=== PATIENT | female | born 1985 | race Caucasian/White ===

== ENCOUNTER 2016-12-05 18:57 | Emergency (ER) | payer OTHER ==
[~2016-12-05 18:57] MED LIST: ACET50TA PO; PERCOCET PO
[2016-12-05] MEDS ORDERED: CIPROFLOXACIN 500 MG TAB As Ordered ONE (21:25)
[2016-12-05] MEDS ORDERED: metroNIDAZOLE (FLAGYL) 250 MG TAB As Ordered ONE (21:25)
--- NOTE | 2016-12-05 21:30 | EDDOCDS ---
Physician Documentation [facility] Name: Cherrie Gay Age: 31 yrs Sex: Female : 1985 Arrival Date: 12/05/2016 Time: 18:57 Bed TR8 Private MD: Finesse Ramires Disposition: 12/05/16 21:22 Discharged to Home/Self Care. Impression: Left sided colitis with rectal bleeding. - Condition is Stable. - Discharge Instructions: Gastrointestinal Bleeding, [id number]. - Prescriptions for Cipro 500 mg Oral Tablet - take 1 tablet by ORAL route every 12 hours; 14 tablet. Flagyl 500 mg Oral Tablet - take 1 tablet by ORAL route every 8 hours for 10 days; 30 tablet. Medrol (Patrick) 4 mg Oral Tablets, Dose Pack - take 1 Pack by ORAL route as directed - follow package instructions; 1 packet. - Medication Reconciliation, Local Pharmacy Hours form. - Follow up: Finesse Ramires; When: Call to arrange an appointment; Reason: Further diagnostic work-up, Recheck today's complaints, Continuance of care. - Problem is new. - Symptoms are unchanged. Historical: - Allergies: Chocolate (Rash); - Home Meds: 1. bupropion HCl 150 mg Oral Tb24 once daily 2. clemastine 2.68 mg oral tab 1 tab once daily 3. microgesterin BCP daily 4. naproxen 250 mg oral tab 5. omeprazole 40 mg Oral cpDR once daily 6. pregabalin 200 mg Oral cap 2 times per day 7. tizanidine 4 mg oral cap 1 cap 3 times per day 8. tramadol 50 mg Oral tab 1 tab every 4 hours 9. zonisamide 50 mg oral cap 10. rizatriptan 10 mg oral tab as needed - PMHx: Chronic Low Back Pain; Chronic Neck Pain; Depression; Fibromyalgia; GERD; Migraine Headaches; Ovarian cyst; TMJ; - PSHx: Appendectomy; Tubal ligation; eye surgery; - Social history: Smoking status: Patient states was never smoker of tobacco. No barriers to communication noted, The patient speaks fluent Yakut. - : The pt / caregiver states he / she is not on anticoagulants. Home medication list is obtained from the patient. - Exposure Risk Screening:: None identified. 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 7 in. (170.18 cm) (R); Pain 3/10; 18:59 Body Mass Index 34.46 (99.79 kg, 170.18 cm) gr2 MDM: 21:24 Ciprofloxacin 500 mg PO once ordered. btw 21:24 metroNIDAZOLE 500 mg PO once ordered. btw Administered Medications: 21:27 Drug: metroNIDAZOLE 500 mg [metronidazole 250 mg tablet (2 tabs)] Route: PO; ld5 21:28 Drug: Ciprofloxacin 500 mg [ciprofloxacin 500 mg tablet (1 tabs)] Route: PO; ld5 Signatures: Raiza Tapia RN RN rs3 Tucker Martinez PA PA btw Vera Cueva RN RN ld5 MTDD
--- NOTE | 2016-12-05 21:30 | EDDOCDS ---
Nurse's Notes [facility] Name: Cherrie Gay Age: 31 yrs Sex: Female : 1985 Arrival Date: 12/05/2016 Time: 18:57 Bed TR8 Private MD: Finesse Ramires Diagnosis: Left sided colitis with rectal bleeding Presentation: 12/05 19:21 Presenting complaint: Patient states: Blood in stools today. lower abdomen, lower back rs3 pain. Adult Sepsis Screening: The patient does not have new or worsening altered mentation. Patient's respiratory rate is less than 22. Systolic blood pressure is greater than 100. Patient has a qSOFA score of 0- Negative Sepsis Screen. Suicide/Homicide risk assessment- the patient denies having any suicidal and/or homicidal ideations and does not present with any other emotional, behavioral or mental health complaints. Status: Patient is not a assurance services manager health care or dependent. Transition of care: patient was not received from another setting of care. 19:21 Acuity: KATHRIN Level 3 rs3 19:21 Method Of Arrival: Walkin/Carried/Asstd rs3 Triage Assessment: 19:25 General: Appears in no apparent distress. Pain: Location: lumbar area and pelvis. HIV rs3 screening NA for this visit Offered previously. 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 bupropion HCl 150 mg Oral Tb24 once daily 2. clemastine 2.68 mg oral tab 1 tab once daily 3. microgesterin BCP daily 4. naproxen 250 mg oral tab 5. omeprazole 40 mg Oral cpDR once daily 6. pregabalin 200 mg Oral cap 2 times per day 7. tizanidine 4 mg oral cap 1 cap 3 times per day 8. tramadol 50 mg Oral tab 1 tab every 4 hours 9. zonisamide 50 mg oral cap 10. rizatriptan 10 mg oral tab as needed - PMHx: Chronic Low Back Pain; Chronic Neck Pain; Depression; Fibromyalgia; GERD; Migraine Headaches; Ovarian cyst; TMJ; - PSHx: Appendectomy; Tubal ligation; eye surgery; - Social history: Smoking status: Patient states was never smoker of tobacco. No barriers to communication noted, The patient speaks fluent Fijian. - : The pt / caregiver states he / she is not on anticoagulants. Home medication list is obtained from the patient. - Exposure Risk Screening:: None identified. Vital Signs: 18:59 BP 122 / 76; Pulse 97; Resp 18 S; Temp 97.3(O); Pulse Ox 98% on R/A; Weight 99.79 kg gr2 (R); Height 5 ft. 7 in. (170.18 cm) (R); Pain 3/10; 18:59 Body Mass Index 34.46 (99.79 kg, 170.18 cm) gr2 Vitals: 18:59 Log In Time: December 05, 2016 at 18:59. gr2 ED Course: 18:58 Patient visited by Nancie Tran. gr2 18:58 Patient moved to Waiting gr2 18:59 Finesse Ramires is Private Physician. gr2 19:01 Patient visited by Nancie Tran. gr2 19:01 Patient moved to Pre RCE gr2 19:22 Triage Initiated rs3 20:56 Patient moved to Triage 1 sew 20:57 Patient moved to Triage 3 ld5 21:10 Tucker Martinez PA is PHCP. btw 21:10 Yo Carreon DO is Attending Physician. btw 21:10 Patient visited by Tucker Martinez PA. btw 21:22 Finesse Ramires is Referral Physician. btw 21:26 Patient moved to TR8 cz Administered Medications: 21:27 Drug: metroNIDAZOLE 500 mg [metronidazole 250 mg tablet (2 tabs)] Route: PO; ld5 21:28 Drug: Ciprofloxacin 500 mg [ciprofloxacin 500 mg tablet (1 tabs)] Route: PO; ld5 Order Results: There are currently no results for this order. Outcome: 21:22 Discharge ordered by Provider. btw 21:29 Patient left the ED. ld5 Signatures: Edwin Ureña RN RN cz Raiza Tapia RN RN rs3 Tucker Martinez PA PA btw Vera Cueva RN RN ld5 Obdulia Nash Gainslee gr2 MTDD
--- NOTE | 2016-12-07 22:30 | EDDOCDS ---
Nurse's Notes [facility] Name: Cherrie Gay Age: 31 yrs Sex: Female : 1985 Arrival Date: 12/05/2016 Time: 18:57 Bed TR8 Private MD: Finesse Ramires Diagnosis: Left sided colitis with rectal bleeding Presentation: 12/05 19:21 Presenting complaint: Patient states: Blood in stools today. lower abdomen, lower back rs3 pain. Adult Sepsis Screening: The patient does not have new or worsening altered mentation. Patient's respiratory rate is less than 22. Systolic blood pressure is greater than 100. Patient has a qSOFA score of 0- Negative Sepsis Screen. Suicide/Homicide risk assessment- the patient denies having any suicidal and/or homicidal ideations and does not present with any other emotional, behavioral or mental health complaints. Status: Patient is not a financial service representative or dependent. Transition of care: patient was not received from another setting of care. 19:21 Acuity: KATHRIN Level 3 rs3 19:21 Method Of Arrival: Walkin/Carried/Asstd rs3 Triage Assessment: 19:25 General: Appears in no apparent distress. Pain: Location: lumbar area and pelvis. HIV rs3 screening NA for this visit Offered previously. 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 bupropion HCl 150 mg Oral Tb24 once daily 2. clemastine 2.68 mg oral tab 1 tab once daily 3. microgesterin BCP daily 4. naproxen 250 mg oral tab 5. omeprazole 40 mg Oral cpDR once daily 6. pregabalin 200 mg Oral cap 2 times per day 7. tizanidine 4 mg oral cap 1 cap 3 times per day 8. tramadol 50 mg Oral tab 1 tab every 4 hours 9. zonisamide 50 mg oral cap 10. rizatriptan 10 mg oral tab as needed - PMHx: Chronic Low Back Pain; Chronic Neck Pain; Depression; Fibromyalgia; GERD; Migraine Headaches; Ovarian cyst; TMJ; - PSHx: Appendectomy; Tubal ligation; eye surgery; - Social history: Smoking status: Patient states was never smoker of tobacco. No barriers to communication noted, The patient speaks fluent Austrian. - : The pt / caregiver states he / she is not on anticoagulants. Home medication list is obtained from the patient. - Exposure Risk Screening:: None identified. Vital Signs: 18:59 BP 122 / 76; Pulse 97; Resp 18 S; Temp 97.3(O); Pulse Ox 98% on R/A; Weight 99.79 kg gr2 (R); Height 5 ft. 7 in. (170.18 cm) (R); Pain 3/10; 18:59 Body Mass Index 34.46 (99.79 kg, 170.18 cm) gr2 Vitals: 18:59 Log In Time: December 05, 2016 at 18:59. gr2 ED Course: 18:58 Patient visited by Nancie Tran. gr2 18:58 Patient moved to Waiting gr2 18:59 Finesse Ramires is Private Physician. gr2 19:01 Patient visited by Nancie Tran. gr2 19:01 Patient moved to Pre RCE gr2 19:22 Triage Initiated rs3 20:56 Patient moved to Triage 1 sew 20:57 Patient moved to Triage 3 ld5 21:10 Tucker Martinez PA is PHCP. btw 21:10 Yo Carreon DO is Attending Physician. btw 21:10 Patient visited by Tucker Martinez PA. btw 21:22 Finesse Ramires is Referral Physician. btw 21:26 Patient moved to 8 12/06 09:39 T-Sheet-- Draft Copy was scanned into [employer] and attached to record. gb Administered Medications: 12/05 21:27 Drug: metroNIDAZOLE 500 mg [metronidazole 250 mg tablet (2 tabs)] Route: PO; ld5 21:28 Drug: Ciprofloxacin 500 mg [ciprofloxacin 500 mg tablet (1 tabs)] Route: PO; ld5 Order Results: There are currently no results for this order. Outcome: 21:22 Discharge ordered by Provider. btw 21:29 Patient left the ED. ld5 Signatures: Edwin Ureña RN RN cz Radha Corbin, Reg Reg gb Raiza Tapia RN RN rs3 Tucker Martinez PA PA btw Vera Cueva RN RN ld5 Obdulia Nash Gainslee gr2 Chart Complete MTDD
--- NOTE | 2016-12-07 22:30 | EDDOCDS ---
Physician Documentation [facility] Name: Cherrie Gay Age: 31 yrs Sex: Female : 1985 Arrival Date: 12/05/2016 Time: 18:57 Bed TR8 Private MD: Finesse Ramires Disposition: 12/05/16 21:22 Discharged to Home/Self Care. Impression: Left sided colitis with rectal bleeding. - Condition is Stable. - Discharge Instructions: Gastrointestinal Bleeding, [id number]. - Prescriptions for Cipro 500 mg Oral Tablet - take 1 tablet by ORAL route every 12 hours; 14 tablet. Flagyl 500 mg Oral Tablet - take 1 tablet by ORAL route every 8 hours for 10 days; 30 tablet. Medrol (Patrick) 4 mg Oral Tablets, Dose Pack - take 1 Pack by ORAL route as directed - follow package instructions; 1 packet. - Medication Reconciliation, Local Pharmacy Hours form. - Follow up: Finesse Ramires; When: Call to arrange an appointment; Reason: Further diagnostic work-up, Recheck today's complaints, Continuance of care. - Problem is new. - Symptoms are unchanged. Historical: - Allergies: Chocolate (Rash); - Home Meds: 1. bupropion HCl 150 mg Oral Tb24 once daily 2. clemastine 2.68 mg oral tab 1 tab once daily 3. microgesterin BCP daily 4. naproxen 250 mg oral tab 5. omeprazole 40 mg Oral cpDR once daily 6. pregabalin 200 mg Oral cap 2 times per day 7. tizanidine 4 mg oral cap 1 cap 3 times per day 8. tramadol 50 mg Oral tab 1 tab every 4 hours 9. zonisamide 50 mg oral cap 10. rizatriptan 10 mg oral tab as needed - PMHx: Chronic Low Back Pain; Chronic Neck Pain; Depression; Fibromyalgia; GERD; Migraine Headaches; Ovarian cyst; TMJ; - PSHx: Appendectomy; Tubal ligation; eye surgery; - Social history: Smoking status: Patient states was never smoker of tobacco. No barriers to communication noted, The patient speaks fluent Kazakh. - : The pt / caregiver states he / she is not on anticoagulants. Home medication list is obtained from the patient. - Exposure Risk Screening:: None identified. 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 7 in. (170.18 cm) (R); Pain 3/10; 18:59 Body Mass Index 34.46 (99.79 kg, 170.18 cm) gr2 MDM: 21:24 Ciprofloxacin 500 mg PO once ordered. btw 21:24 metroNIDAZOLE 500 mg PO once ordered. btw 12/06 09:39 T-Sheet-- Draft Copy was scanned into [employer] and attached to record. gb Administered Medications: 12/05 21:27 Drug: metroNIDAZOLE 500 mg [metronidazole 250 mg tablet (2 tabs)] Route: PO; ld5 21:28 Drug: Ciprofloxacin 500 mg [ciprofloxacin 500 mg tablet (1 tabs)] Route: PO; ld5 Signatures: Radha Corbin, Reg Reg gb Raiza TapiaRN RN rs3 Tucker Martinez PA PA btw Vera Cueva,RN RN ld5 The chart was reviewed and I authenticate all verbal orders and agree with the evaluation and treatment provided.Attachments: 12/06 09:39 T-Sheet-- Draft Copy gb Chart Complete MTDD
--- NOTE | 2016-12-07 22:30 | EDDOCDS ---
Physician Documentation [facility] Name: Cherrie Gay Age: 31 yrs Sex: Female : 1985 Arrival Date: 12/05/2016 Time: 18:57 Bed TR8 Private MD: Finesse Ramires Disposition: 12/05/16 21:22 Discharged to Home/Self Care. Impression: Left sided colitis with rectal bleeding. - Condition is Stable. - Discharge Instructions: Gastrointestinal Bleeding, [id number]. - Prescriptions for Cipro 500 mg Oral Tablet - take 1 tablet by ORAL route every 12 hours; 14 tablet. Flagyl 500 mg Oral Tablet - take 1 tablet by ORAL route every 8 hours for 10 days; 30 tablet. Medrol (Patrick) 4 mg Oral Tablets, Dose Pack - take 1 Pack by ORAL route as directed - follow package instructions; 1 packet. - Medication Reconciliation, Local Pharmacy Hours form. - Follow up: Finesse Ramires; When: Call to arrange an appointment; Reason: Further diagnostic work-up, Recheck today's complaints, Continuance of care. - Problem is new. - Symptoms are unchanged. Historical: - Allergies: Chocolate (Rash); - Home Meds: 1. bupropion HCl 150 mg Oral Tb24 once daily 2. clemastine 2.68 mg oral tab 1 tab once daily 3. microgesterin BCP daily 4. naproxen 250 mg oral tab 5. omeprazole 40 mg Oral cpDR once daily 6. pregabalin 200 mg Oral cap 2 times per day 7. tizanidine 4 mg oral cap 1 cap 3 times per day 8. tramadol 50 mg Oral tab 1 tab every 4 hours 9. zonisamide 50 mg oral cap 10. rizatriptan 10 mg oral tab as needed - PMHx: Chronic Low Back Pain; Chronic Neck Pain; Depression; Fibromyalgia; GERD; Migraine Headaches; Ovarian cyst; TMJ; - PSHx: Appendectomy; Tubal ligation; eye surgery; - Social history: Smoking status: Patient states was never smoker of tobacco. No barriers to communication noted, The patient speaks fluent Italian. - : The pt / caregiver states he / she is not on anticoagulants. Home medication list is obtained from the patient. - Exposure Risk Screening:: None identified. 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 7 in. (170.18 cm) (R); Pain 3/10; 18:59 Body Mass Index 34.46 (99.79 kg, 170.18 cm) gr2 MDM: 21:24 Ciprofloxacin 500 mg PO once ordered. btw 21:24 metroNIDAZOLE 500 mg PO once ordered. btw 12/06 09:39 T-Sheet-- Draft Copy was scanned into [employer] and attached to record. gb Administered Medications: 12/05 21:27 Drug: metroNIDAZOLE 500 mg [metronidazole 250 mg tablet (2 tabs)] Route: PO; ld5 21:28 Drug: Ciprofloxacin 500 mg [ciprofloxacin 500 mg tablet (1 tabs)] Route: PO; ld5 Signatures: Radha Corbin, Reg Reg gb Raiza TapiaRN RN rs3 Tucker Martinez PA PA btw Vera Cueva,RN RN ld5 The chart was reviewed and I authenticate all verbal orders and agree with the evaluation and treatment provided.Attachments: 12/06 09:39 T-Sheet-- Draft Copy gb Chart Complete MTDD
== END 2016-12-05 21:29 | disposition home or self-care (01) ==
LOC: M ED 18:57
DX: K64.8 Other hemorrhoids (principal); K51.50 Left sided colitis without complications; M54.9 Dorsalgia, unspecified; G89.29 Other chronic pain; M79.7 Fibromyalgia; F32.9 Major depressive disorder, single episode, unspecified; K21.9 Gastro-esophageal reflux disease without esophagitis; G43.909 Migraine, unspecified, not intractable, without status migrainosus; Z87.42 Personal history of other diseases of the female genital tract; M26.629 Arthralgia of temporomandibular joint, unspecified side; Z79.899 Other long term (current) drug therapy; Z79.3 Long term (current) use of hormonal contraceptives; Z91.018 Allergy to other foods

== ENCOUNTER → 2016-12-30 | Outpatient (REF) | payer OTHER | END | disposition home or self-care (01) | LOC: M LAB REF 17:24 | PROVIDERS: ATTEND Specialist | DX: Z01.419 Encounter for gynecological examination (general) (routine) without abnormal findings (principal); Z11.51 Encounter for screening for human papillomavirus (HPV) ==

== ENCOUNTER 2017-02-11 12:52 | Emergency (ER) | payer OTHER ==
[~2017-02-11] VITALS: Ht 170.2 cm; Wt 97.5 kg
[2017-02-11] MEDS ORDERED: MICR1TAB9 (16:23)
[2017-02-11] MEDS ORDERED: CLEM2.68 (16:23)
[2017-02-11] MEDS ORDERED: RIZA10TA4 (16:23)
[2017-02-11] MEDS ORDERED: ZONI100C2 (16:23)
[2017-02-11] MEDS ORDERED: FLUT1SPR2 (16:23)
[2017-02-11] MEDS ORDERED: OMEP40CA2 (16:23)
[2017-02-11] MEDS ORDERED: BACL10TA2 (16:23)
[2017-02-11] MEDS ORDERED: BUPR150T3 (16:23)
[2017-02-11] MEDS ORDERED: METOCLOPRAMIDE INJ 10MG/2ML VIAL (J2765) IV ONE (17:45)
[2017-02-11] MEDS ORDERED: diphenhydrAMINE INJ 50MG/ML VIAL (J1200) IV ONE (17:45)
[2017-02-11] MEDS ORDERED: NS 1,000 ML IV ONE (17:45)
[2017-02-11] MEDS ORDERED: KETOROLAC 30 MG/ML VIAL (J1885) IV ONE (17:45)
[2017-02-11] MEDS ORDERED: REGL10TA6 PO (19:07)
[2017-02-11 19:35] VITALS: BP 138/76
== END 2017-02-11 19:40 | disposition home or self-care (01) ==
LOC: M ED 15:59
DX: G43.909 Migraine, unspecified, not intractable, without status migrainosus (principal)
CPT/HCPCS: 87804; 96374; 96375; 99282; J1200; J1885; J2765

== ENCOUNTER → 2017-03-26 | Outpatient (CLI) | payer OTHER ==
[~2017-03-26] VITALS: Ht 167.6 cm; Wt 97.1 kg
[~2017-03-26] MED LIST changes: +BACL10TA2; +BUPR150T3; +CLEM2.68; +FLUT1SPR2; +LIDOCAINE 2% INJ 100 MG/5 ML SDV (FOR ANES.) As Ordered ONE; +LYRI200C PO; +MICR1TAB9; +NAPR250T2 PO; +NS 1,000 ML IV ONE; +OMEP40CA2; +PROPOFOL 500 MG/50 ML VIAL As Ordered ONE; +REGL10TA6 PO; +RIZA10TA4; +TRAM50TA2 PO; +ZOFR20TA PO; +ZONI100C2; +ZONI50CA3 PO
--- NOTE | 2017-03-26 11:43 | ROOR ---
Patient Name: Cherrie Gay Procedure Date: 03/26/2017 11:30 AM Date of : 1985 Age: 31 Room: [facility] Gender: Female Note Status: Finalized Procedure: Upper GI endoscopy Indications: Heartburn Providers: Alejandro Richardson MD Referring MD: LARRY Garcia Requesting Provider: Medicines: Monitored Anesthesia Care Complications: No immediate complications. Procedure: Pre-Anesthesia Assessment: - The heart rate, respiratory rate, oxygen saturations, blood pressure, adequacy of pulmonary ventilation, and response to care were monitored throughout the procedure. The Endoscope was introduced through the mouth, and advanced to the second part of duodenum. The upper GI endoscopy was accomplished without difficulty. The patient tolerated the procedure well. Findings: The Z-line was regular and was found 40 cm from the incisors. No other significant abnormalities were identified in a careful examination of the stomach. The exam of the duodenum was otherwise normal. Impression: - Z-line regular, 40 cm from the incisors. - No specimens collected. - The examination was otherwise normal. Recommendation: - Patient has a contact number available for emergencies. The signs and symptoms of potential delayed complications were discussed with the patient. Return to normal activities tomorrow. Written discharge instructions were provided to the patient. - High fiber diet. - Discharge patient to home. - Follow an antireflux regimen. - Continue present medications. - Return to referring physician. - The findings and recommendations were discussed with the patient's family. Alejandro Richardson MD Alejandro Richardson MD 03/26/2017 11:42:48 AM This report has been signed electronically. Number of Addenda: 0 Note Initiated On: 03/26/2017 11:30 AM Estimated Blood Loss: Estimated blood loss: none.
--- NOTE | 2017-03-26 11:56 | ROOR ---
Patient Name: Cherrie Gay Procedure Date: 03/26/2017 11:31 AM Date of : 1985 Age: 31 Room: [facility] Gender: Female Note Status: Finalized Procedure: Colonoscopy to Cecum Indications: Rectal bleeding Providers: Alejandro Richardson MD Referring MD: LARRY Garcia Requesting Provider: Medicines: Monitored Anesthesia Care Complications: No immediate complications. Procedure: Pre-Anesthesia Assessment: - The heart rate, respiratory rate, oxygen saturations, blood pressure, adequacy of pulmonary ventilation, and response to care were monitored throughout the procedure. The Colonoscope was introduced through the anus and advanced to the cecum, identified by appendiceal orifice and ileocecal valve. The colonoscopy was performed without difficulty. The patient tolerated the procedure well. The quality of the bowel preparation was excellent. Findings: The perianal and digital rectal examinations were normal. Non-bleeding internal hemorrhoids were found during retroflexion. The hemorrhoids were small and Grade I (internal hemorrhoids that do not prolapse). No other significant abnormalities were identified in a careful examination of the remainder of the colon. The exam was otherwise without abnormality on direct and retroflexion views. Impression: - Non-bleeding internal hemorrhoids. - The examination was otherwise normal on direct and retroflexion views. - No specimens collected. - The exam was otherwise normal to the cecum. Recommendation: - Patient has a contact number available for emergencies. The signs and symptoms of potential delayed complications were discussed with the patient. Return to normal activities tomorrow. Written discharge instructions were provided to the patient. - High fiber diet. - Discharge patient to home. - Continue present medications. - Repeat colonoscopy at age 50 for screening purposes. - Return to referring physician. - The findings and recommendations were discussed with the patient's family. Alejandro Richardson MD Alejandro Richardson MD 03/26/2017 11:55:48 AM This report has been signed electronically. Number of Addenda: 0 Note Initiated On: 03/26/2017 11:31 AM Estimated Blood Loss: Estimated blood loss: none.
[2017-03-26 12:20] VITALS: BP 121/83
== END ==
LOC: M OPP 10:56
PROVIDERS: ATTEND Internal Medicine Gastroenterology
DX: K64.0 First degree hemorrhoids (principal); K62.5 Hemorrhage of anus and rectum; R12 Heartburn; K21.9 Gastro-esophageal reflux disease without esophagitis; M54.5 Low back pain; M54.2 Cervicalgia; M26.629 Arthralgia of temporomandibular joint, unspecified side; R56.9 Unspecified convulsions; G24.8 Other dystonia; F32.9 Major depressive disorder, single episode, unspecified; F41.9 Anxiety disorder, unspecified; G43.909 Migraine, unspecified, not intractable, without status migrainosus; M79.7 Fibromyalgia; Z79.891 Long term (current) use of opiate analgesic; Z79.899 Other long term (current) drug therapy; Z91.018 Allergy to other foods; Z91.040 Latex allergy status; Z87.19 Personal history of other diseases of the digestive system

== ENCOUNTER 2017-04-22 00:38 | Emergency (ER) | payer OTHER ==
[~2017-04-22] VITALS: Ht 167.6 cm; Wt 98.0 kg
[~2017-04-22 00:38] MED LIST changes: -LIDOCAINE 2% INJ 100 MG/5 ML SDV (FOR ANES.) As Ordered ONE; -NS 1,000 ML IV ONE; -PROPOFOL 500 MG/50 ML VIAL As Ordered ONE
[2017-04-22] MEDS ORDERED: KETOROLAC 30 MG/ML VIAL (J1885) IV ONE (02:30)
[2017-04-22] MEDS ORDERED: dexameTHASONE 20 MG/5 ML VIAL (J1100) IV ONE (02:30)
[2017-04-22] MEDS ORDERED: METOCLOPRAMIDE INJ 10MG/2ML VIAL (J2765) IV ONE (02:30)
[2017-04-22 02:35] VITALS: BP 123/75
== END 2017-04-22 04:19 | disposition home or self-care (01) ==
LOC: EDBD 00:38 → EDSEX 00:38 → M ED 01:51
DX: G43.709 Chronic migraine without aura, not intractable, without status migrainosus (principal); M79.7 Fibromyalgia; K21.9 Gastro-esophageal reflux disease without esophagitis; G47.00 Insomnia, unspecified; Z91.018 Allergy to other foods; Z91.040 Latex allergy status; Z91.048 Other nonmedicinal substance allergy status; Z79.899 Other long term (current) drug therapy; Z79.1 Long term (current) use of non-steroidal anti-inflammatories (NSAID)

== ENCOUNTER 2018-01-06 11:32 | Inpatient (IN) | payer OTHER ==
[2018-01-06] MEDS: NS 1,000 ML IV ×2 (12:30→17:43)
[2018-01-06] MEDS: ONDANSETRON 4MG/2ML VIAL (J2405) IV ×2 (13:00→15:08)
[2018-01-06] MEDS: MORPHINE 4 MG/ML 1ML VIAL (J2270) IV ×2 (13:00→21:32)
[2018-01-06 13:15] LABS: BASO % 0.1 % (0.0-1.0); EOS % 0.1 % (0.0-3.0); HEMATOCRIT 35.4 % (36.0-47.0); HEMOGLOBIN 12.3 g/dl (12.0-16.0); IMMATURE GRANULOCYTE % 0.4 % (0-3.0); LYMPH # 1.5 10^3/uL (1.5-4.5); LYMPH % 11.2 % (24.0-44.0); MEAN CORPUSCULAR HEMOGLOBIN 30.4 pg (27.0-33.0); MEAN CORPUSCULAR HGB CONC 34.7 g/dl (32.0-36.5); MEAN CORPUSCULAR VOLUME 87.4 fl (80.0-96.0); MONO # 1.2 10^3/uL (0.0-0.8); MONO % 8.8 % (0.0-5.0); NEUTROPHILS # 10.7 10^3/uL (1.8-7.7); NEUTROPHILS % 79.4 % (36.0-66.0); PLATELET COUNT, AUTOMATED 319 10^3/uL (150-450); RED BLOOD COUNT 4.05 10^6/uL (4.00-5.40); RED CELL DISTRIBUTION WIDTH 12.1 % (11.5-14.5); WHITE BLOOD COUNT 13.5 10^3/uL (4.0-10.0)
[2018-01-06 13:23] LABS: CONTROL LINE HCG INT CTR LINE PRESENT; HCG, SERUM QUALITATIVE NEGATIVE (NEGATIVE)
[2018-01-06 13:31] LABS: ALBUMIN 3.5 GM/DL (3.2-5.2); ALKALINE PHOSPHATASE 100 U/L (45-117); ALT/SGPT 17 U/L (12-78); ANION GAP 11 MEQ/L (8-16); AST/SGOT 10 U/L (7-37); BILIRUBIN,DIRECT 0.1 MG/DL (0.0-0.2); BILIRUBIN,TOTAL 0.4 MG/DL (0.2-1.0); BLOOD UREA NITROGEN 13 MG/DL (7-18); CARBON DIOXIDE LEVEL 27 MEQ/L (21-32); CHLORIDE LEVEL 99 MEQ/L (98-107); CREATININE FOR GFR 0.71 MG/DL (0.55-1.30); GLOMERULAR FILTRATION RATE > 60.0 (>60); GLUCOSE, FASTING 105 MG/DL (70-100); LIPASE 76 U/L (73-393); POTASSIUM SERUM 3.3 MEQ/L (3.5-5.1); SODIUM LEVEL 137 MEQ/L (136-145)
[2018-01-06] MEDS: POTASSIUM CHLORIDE 10 MEQ SR TABLET PO (13:57)
[2018-01-06] MEDS: GASTROGRAFIN SOLUTION 30ML PO ×2 (14:13→14:35)
[2018-01-06] MEDS ORDERED: ISOVUE-370 76% 100ML VIAL (Q9967) As Ordered (15:29)
[2018-01-06] MEDS: PROMETHAZINE INJ 25 MG/ML VIAL (J2550) IV (17:43)
[2018-01-06 18:05] LABS: KETONE, URINE AUTO RFX 1+ mg/dL (NEGATIVE); NITRITE, URINE AUTO RFX NEGATIVE (NEGATIVE); RBC, URINE AUTO RFX 2 /HPF (0-3); SQUAM EPITHELIAL CELL UR AURFX 0 /HPF (0-6); WBC, URINE AUTO RFX 7 /HPF (0-3)
[2018-01-06 18:07] LABS: LEUKOCYTE ESTERASE UR AUTO RFX 1+ (NEGATIVE); SPECIFIC GRAVITY UR AUTO RFX >1.060 (1.002-1.035)
[2018-01-06 18:31] LABS: AMPHETAMINES LEVEL URINE NEGATIVE (NEGATIVE); BARBITURATES URINE NEGATIVE (NEGATIVE); BENZODIAZEPINES URINE NEGATIVE (NEGATIVE); CANNABINOIDS URINE POSITIVE (NEGATIVE); COCAINE METABOLITE URINE NEGATIVE (NEGATIVE); METHADONE URINE NEGATIVE (NEGATIVE); OPIATES URINE POSITIVE (NEGATIVE); PHENCYCLIDINE URINE NEGATIVE (NEGATIVE)
[2018-01-06] MEDS: ONDANSETRON 4 MG TAB (S0181) PO (21:33)
[2018-01-06] MEDS: LR 1,000 ML IV (21:34)
[2018-01-06] MEDS: CIPROFLOXACIN 400 MG in APPROPRIATE DILUENT 1 EA IV (22:25)
[2018-01-06] MEDS: ZONISAMIDE 100 MG CAP (ZONEGRAN) PO (22:26)
[2018-01-06] MEDS: ZONISAMIDE 50 MG CAP (ZONEGRAN) PO (22:26)
[2018-01-06] MEDS: GABAPENTIN 100 MG CAP PO (22:26)
[2018-01-06] MEDS: OMEPRAZOLE 20 MG CAP PO (22:27)
[2018-01-06] MEDS: PARoxetine 20 MG TAB PO (22:27)
[2018-01-06] MEDS: buPROPion **XL** TABLET 150MG (WELLBUTRIN XL) PO (22:27)
[2018-01-06] MEDS: PREGABALIN 100 MG CAP (LYRICA) PO (22:27)
[2018-01-07] MEDS: ACETAMINOPHEN TAB 650MG DOSE (2X325MG) PO (00:24)
[2018-01-07] MEDS: NORCO, ANEXSIA 5/325MG TABLET (HYDROcodone/ACETAMINOPHEN) PO ×2 (06:44→10:57)
[2018-01-07] MEDS: PROMETHAZINE 25 MG TAB PO (06:44)
[2018-01-07 07:10] LABS: HEMOGLOBIN 11.9 g/dl (12.0-16.0); MEAN CORPUSCULAR HEMOGLOBIN 29.6 pg (27.0-33.0); MEAN CORPUSCULAR HGB CONC 33.1 g/dl (32.0-36.5); MEAN CORPUSCULAR VOLUME 89.6 fl (80.0-96.0); PLATELET COUNT, AUTOMATED 334 10^3/uL (150-450); RED BLOOD COUNT 4.02 10^6/uL (4.00-5.40); RED CELL DISTRIBUTION WIDTH 12.6 % (11.5-14.5); WHITE BLOOD COUNT 10.2 10^3/uL (4.0-10.0)
[2018-01-07 07:24] LABS: ANION GAP 6 MEQ/L (8-16); BLOOD UREA NITROGEN 7 MG/DL (7-18); CALCIUM LEVEL 8.5 MG/DL (8.5-10.1); CARBON DIOXIDE LEVEL 25 MEQ/L (21-32); CHLORIDE LEVEL 109 MEQ/L (98-107); CREATININE FOR GFR 0.78 MG/DL (0.55-1.30); GLOMERULAR FILTRATION RATE > 60.0 (>60); GLUCOSE, FASTING 99 MG/DL (70-100); POTASSIUM SERUM 3.3 MEQ/L (3.5-5.1); SODIUM LEVEL 140 MEQ/L (136-145)
[2018-01-07] MEDS: PREGABALIN 100 MG CAP (LYRICA) PO (08:12)
[2018-01-07] MEDS: ZONISAMIDE 100 MG CAP (ZONEGRAN) PO (08:12)
[2018-01-07] MEDS: ENOXAPARIN 40 MG/0.4 ML SYRINGE (J1650) SC (08:12)
[2018-01-07] MEDS: GABAPENTIN 100 MG CAP PO (08:12)
[2018-01-07] MEDS: LR 1,000 ML IV ×2 (08:13→14:30)
[2018-01-07] MEDS: CIPROFLOXACIN 400 MG in APPROPRIATE DILUENT 1 EA IV (08:13)
[2018-01-07] MEDS: ONDANSETRON 4 MG TAB (S0181) PO (09:20)
[2018-01-07] MEDS: BACLOFEN 10 MG TAB PO (09:20)
[2018-01-07] MEDS: POTASSIUM CHLORIDE 10 MEQ SR TABLET PO (11:32)
[2018-01-07] MEDS: RIZATRIPTAN MLT 10 MG TAB PO (11:32)
[2018-01-07] MEDS: INFLUENZA QUADRIVALENT PF VACCINE 0.5ML SYRINGE (90686) IM (17:02)
== END 2018-01-07 17:05 | disposition home or self-care (01) | DRG 249 ==
LOC: M ED 11:32 → M ED INP 18:57 → M MS5PR 21:04
DX: R11.10 Vomiting, unspecified (principal); N10 Acute pyelonephritis; E87.6 Hypokalemia; F41.8 Other specified anxiety disorders; M79.7 Fibromyalgia; G43.909 Migraine, unspecified, not intractable, without status migrainosus; Z79.899 Other long term (current) drug therapy; Z91.040 Latex allergy status; Z91.018 Allergy to other foods; Z98.51 Tubal ligation status

== ENCOUNTER 2018-10-04 21:36 | Emergency (ER) | payer OTHER ==
[2018-10-04] MEDS: NS 1,000 ML IV (22:43)
[2018-10-04] MEDS: diphenhydrAMINE INJ 50MG/ML VIAL (J1200) IV (22:43)
[2018-10-04] MEDS: METOCLOPRAMIDE INJ 10MG/2ML VIAL (J2765) IV (22:43)
[2018-10-04] MEDS: KETOROLAC 30 MG/ML VIAL (J1885) IV (22:43)
== END 2018-10-05 00:57 | disposition home or self-care (01) ==
LOC: M ED 10-05 00:57
DX: G43.909 Migraine, unspecified, not intractable, without status migrainosus (principal); Z91.018 Allergy to other foods; Z91.040 Latex allergy status
CPT/HCPCS: J1200

== ENCOUNTER 2018-12-13 18:20 | Emergency (ER) | payer OTHER ==
[~2018-12-13] VITALS: Ht 167.6 cm; Wt 86.4 kg
[~2018-12-13 18:20] MED LIST changes: -BACL10TA2; +BACL10TA2 PO; -BUPR150T3; +BUPR150T3 PO; +CIPR-249 PO; +GABA-1171 PO; +LEVOTAB10 PO; -NAPR250T2 PO; +NAPR250T4 PO; -OMEP40CA2; +OMEP40CA2 PO; +PARO20TA3 PO; +PATIENT COMMENT; -RIZA10TA4; +RIZA10TA4 PO; -ZOFR20TA PO; +ZOFR4TAB16 PO; -ZONI100C2; +ZONI100C2 PO
[2018-12-13] MEDS ORDERED: NAPR-50 PO (19:56)
[2018-12-13] MEDS ORDERED: NAPROXEN 250 MG TAB PO ONE (20:00)
[2018-12-13 20:01] VITALS: BP 130/60
--- NOTE | 2018-12-14 09:09 | REP ---
RIGHT ELBOW COMPLETE: 12/13/2018. COMPARISON: None. CLINICAL HISTORY: No trauma, rule out malunion. FINDINGS: Five views show the radial head and capitellum aligning normally on all projections. The olecranon and distal humerus also align normally. There is no evidence of an acute fracture. There is no elbow joint effusion. No avulsion, soft-tissue calcification or other acute bony finding. IMPRESSION: 1. There is no visible fracture, avulsion, joint effusion or loose body. Order states remote fracture, evaluate for nonunion. None evident. Electronically Signed by Antonio Simpson MD 12/14/2018 01:08 P
== END 2018-12-13 20:14 | disposition home or self-care (01) ==
LOC: M ED 18:20
DX: M25.521 Pain in right elbow (principal); Z91.018 Allergy to other foods; Z91.040 Latex allergy status

== ENCOUNTER → 2019-01-08 | Outpatient (CLI) | payer OTHER ==
[~2019-01-08] MED LIST changes: +NAPR-50 PO
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
== END ==
LOC: M PAIN 10:00
PROVIDERS: ATTEND Anesthesiology
DX: M79.18 Myalgia, other site (principal); M54.2 Cervicalgia; G43.709 Chronic migraine without aura, not intractable, without status migrainosus; F32.9 Major depressive disorder, single episode, unspecified; F41.9 Anxiety disorder, unspecified; F40.02 Agoraphobia without panic disorder; K21.9 Gastro-esophageal reflux disease without esophagitis; M79.7 Fibromyalgia; G43.909 Migraine, unspecified, not intractable, without status migrainosus; Z88.8 Allergy status to other drugs, medicaments and biological substances; Z91.018 Allergy to other foods

== ENCOUNTER → 2019-02-12 | Outpatient (CLI) | payer OTHER ==
[~2019-02-12] MED LIST changes: -ACET50TA PO; +DULO1CAP3; +IBUP-1022 PO; +MAPA500T17 PO; +MICR1TAB17; -MICR1TAB9; -NAPR-50 PO; +NAPR-837 PO; +OXYC1TAB23 PO; -PERCOCET PO
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
== END ==
LOC: M PAIN 13:45
PROVIDERS: ATTEND Anesthesiology
DX: M79.18 Myalgia, other site (principal); M54.2 Cervicalgia; G43.709 Chronic migraine without aura, not intractable, without status migrainosus; Z79.899 Other long term (current) drug therapy; Z97.5 Presence of (intrauterine) contraceptive device; Z91.018 Allergy to other foods; Z88.8 Allergy status to other drugs, medicaments and biological substances; Z91.048 Other nonmedicinal substance allergy status

== ENCOUNTER 2019-02-21 18:28 | Emergency (ER) | payer OTHER ==
[~2019-02-21] VITALS: Ht 167.6 cm; Wt 89.8 kg
[~2019-02-21 18:28] MED LIST changes: -DULO1CAP3; -IBUP-1022 PO
[2019-02-21] MEDS ORDERED: DULO1CAP3 (19:05)
[2019-02-21] MEDS ORDERED: PROCHLORPERAZINE 5 MG TAB (S0183) PO ONE (20:15)
[2019-02-21] MEDS ORDERED: NS 1,000 ML IV ONE (20:15)
[2019-02-21] MEDS ORDERED: KETOROLAC 30 MG/ML VIAL (J1885) IV ONE (20:15)
[2019-02-21 20:45] LABS: BASO % 0.6 % (0.0-1.0); EOS # 0.1 10^3/uL (0.0-0.50); EOS % 0.8 % (0.0-3.0); HEMATOCRIT 39.5 % (36.0-47.0); HEMOGLOBIN 12.9 g/dl (12.0-15.5); LYMPH # 2.1 10^3/uL (1.5-4.5); LYMPH % 29.3 % (24.0-44.0); MEAN CORPUSCULAR HEMOGLOBIN 29.7 pg (27.0-33.0); MEAN CORPUSCULAR HGB CONC 32.7 g/dl (32.0-36.5); MONO # 0.5 10^3/uL (0.0-0.8); MONO % 6.8 % (0.0-5.0); NEUTROPHILS # 4.5 10^3/uL (1.8-7.7); NEUTROPHILS % 62.4 % (36.0-66.0); PLATELET COUNT, AUTOMATED 287 10^3/uL (150-450); RED BLOOD COUNT 4.34 10^6/uL (4.00-5.40); WHITE BLOOD COUNT 7.2 10^3/uL (4.0-10.0)
[2019-02-21 21:02] LABS: MONO SCRN NEGATIVE (NEGATIVE)
[2019-02-21 21:07] LABS: ERYTHROCYTE SEDIMENTATION RATE 12 mm/hr (0-20)
[2019-02-21 21:16] LABS: BLOOD UREA NITROGEN 10 MG/DL (7-18); C REACTIVE PROTEIN QUANTITATIV < 0.30 MG/DL (0.00-0.30); CARBON DIOXIDE LEVEL 28 MEQ/L (21-32); CHLORIDE LEVEL 106 MEQ/L (98-107); CREATININE FOR GFR 0.59 MG/DL (0.55-1.30); GLOMERULAR FILTRATION RATE > 60.0 (>60); GLUCOSE, FASTING 93 MG/DL (70-100); POTASSIUM SERUM 4.2 MEQ/L (3.5-5.1); SODIUM LEVEL 140 MEQ/L (136-145)
[2019-02-21] MEDS ORDERED: IBUP-1022 PO (21:43)
[2019-02-21 22:02] VITALS: BP 116/77
== END 2019-02-21 22:08 | disposition home or self-care (01) ==
LOC: M ED 18:28
DX: G43.909 Migraine, unspecified, not intractable, without status migrainosus (principal); R59.0 Localized enlarged lymph nodes
CPT/HCPCS: 80048; 85025; 85652; 86140; 86308; 96361; 96374; 99284; J1885

== ENCOUNTER → 2019-03-04 | Outpatient (CLI) | payer OTHER ==
[~2019-03-04] MED LIST changes: +BOTULINUM INJ 100 UNITS (J0585) IM ONE; +DULO1CAP3; +IBUP-1022 PO; +diazePAM 5 MG TAB As Ordered ONE; +diphenhydrAMINE 25 MG CAP As Ordered ONE; +oxyCODONE 5MG TAB As Ordered ONE
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
== END ==
LOC: M PAIN 11:30
PROVIDERS: ATTEND Anesthesiology
DX: G43.709 Chronic migraine without aura, not intractable, without status migrainosus (principal); M79.7 Fibromyalgia; G43.909 Migraine, unspecified, not intractable, without status migrainosus; F32.9 Major depressive disorder, single episode, unspecified; F41.9 Anxiety disorder, unspecified; Z79.1 Long term (current) use of non-steroidal anti-inflammatories (NSAID); Z88.8 Allergy status to other drugs, medicaments and biological substances; Z91.02 Food additives allergy status; Z91.09 Other allergy status, other than to drugs and biological substances
CPT/HCPCS: 64615; J0585

== ENCOUNTER → 2019-05-24 | Outpatient (CLI) | payer OTHER ==
[~2019-05-24] MED LIST changes: -BOTULINUM INJ 100 UNITS (J0585) IM ONE; -DULO1CAP3; +DULO1CAP6; -diazePAM 5 MG TAB As Ordered ONE; -diphenhydrAMINE 25 MG CAP As Ordered ONE; -oxyCODONE 5MG TAB As Ordered ONE
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
== END ==
LOC: M PAIN 12:30
PROVIDERS: ATTEND Anesthesiology
DX: G89.29 Other chronic pain (principal); G43.709 Chronic migraine without aura, not intractable, without status migrainosus; F32.9 Major depressive disorder, single episode, unspecified; F41.9 Anxiety disorder, unspecified; F40.00 Agoraphobia, unspecified; K21.9 Gastro-esophageal reflux disease without esophagitis; M79.7 Fibromyalgia; G43.909 Migraine, unspecified, not intractable, without status migrainosus; E87.6 Hypokalemia; G47.00 Insomnia, unspecified; Z79.1 Long term (current) use of non-steroidal anti-inflammatories (NSAID); Z88.8 Allergy status to other drugs, medicaments and biological substances; Z91.018 Allergy to other foods; Z91.048 Other nonmedicinal substance allergy status

== ENCOUNTER → 2019-06-15 | Outpatient (CLI) | payer OTHER ==
[~2019-06-15] MED LIST changes: +BOTULINUM INJ 100 UNITS (J0585) IM ONE; +diazePAM 5 MG TAB As Ordered ONE; +diphenhydrAMINE 25 MG CAP As Ordered ONE; +oxyCODONE 5MG TAB As Ordered ONE
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
== END ==
LOC: M PAIN 11:45
PROVIDERS: ATTEND Anesthesiology
DX: G43.709 Chronic migraine without aura, not intractable, without status migrainosus (principal); F32.9 Major depressive disorder, single episode, unspecified; F41.9 Anxiety disorder, unspecified; K21.9 Gastro-esophageal reflux disease without esophagitis; M79.7 Fibromyalgia; F40.00 Agoraphobia, unspecified; E87.6 Hypokalemia; G47.00 Insomnia, unspecified; M25.521 Pain in right elbow; Z90.49 Acquired absence of other specified parts of digestive tract; Z79.899 Other long term (current) drug therapy; Z91.018 Allergy to other foods; Z88.8 Allergy status to other drugs, medicaments and biological substances; Z91.048 Other nonmedicinal substance allergy status
CPT/HCPCS: 64615; J0585

== ENCOUNTER 2019-07-16 18:26 | Emergency (ER) | payer OTHER ==
[~2019-07-16] VITALS: Ht 167.6 cm; Wt 90.2 kg
[~2019-07-16 18:26] MED LIST changes: -BOTULINUM INJ 100 UNITS (J0585) IM ONE; -diazePAM 5 MG TAB As Ordered ONE; -diphenhydrAMINE 25 MG CAP As Ordered ONE; -oxyCODONE 5MG TAB As Ordered ONE
[2019-07-16] MEDS ORDERED: RANI150T14 PO (18:40)
[2019-07-16] MEDS ORDERED: ALEV220T22 PO (18:40)
[2019-07-16] MEDS ORDERED: TIZA2TA (18:40)
[2019-07-16] MEDS ORDERED: MONT10TA2 (18:40)
[2019-07-16] MEDS ORDERED: predniSONE 20 MG TAB PO ONE (20:45)
[2019-07-16] MEDS ORDERED: PRED20TA PO (20:46)
[2019-07-16] MEDS ORDERED: TIZA4TAB4 PO (20:46)
[2019-07-16 20:57] VITALS: BP 133/93
== END 2019-07-16 20:58 | disposition home or self-care (01) ==
LOC: M ED 18:26
DX: M54.12 Radiculopathy, cervical region (principal); G89.29 Other chronic pain; M79.7 Fibromyalgia; M79.2 Neuralgia and neuritis, unspecified; Z79.899 Other long term (current) drug therapy; Z88.8 Allergy status to other drugs, medicaments and biological substances; Z91.040 Latex allergy status; Z91.018 Allergy to other foods

== ENCOUNTER → 2019-07-22 | Outpatient (CLI) | payer OTHER ==
[~2019-07-22] MED LIST changes: +ALEV220T22 PO; +MONT10TA2; +PRED20TA PO; +RANI150T14 PO; +TIZA2TA; +TIZA4TAB4 PO
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
== END ==
LOC: M PAIN 10:45
PROVIDERS: ATTEND Family Medicine
DX: G43.709 Chronic migraine without aura, not intractable, without status migrainosus (principal); Z86.59 Personal history of other mental and behavioral disorders; M79.7 Fibromyalgia; G47.00 Insomnia, unspecified; Z88.8 Allergy status to other drugs, medicaments and biological substances; Z91.018 Allergy to other foods; Z91.09 Other allergy status, other than to drugs and biological substances; Z79.899 Other long term (current) drug therapy

== ENCOUNTER 2019-08-08 13:51 | Emergency (ER) | payer OTHER ==
[~2019-08-08] VITALS: Ht 167.6 cm; Wt 90.6 kg
--- NOTE | 2019-08-08 15:00 | REP ---
REASON: Pain after walking. FINDINGS: No acute fracture or destructive osseous lesion. Electronically Signed by Rod Lipscomb DO 08/08/2019 03:38 P
[2019-08-08 15:35] VITALS: BP 136/89
== END 2019-08-08 15:39 | disposition home or self-care (01) ==
LOC: M ED 13:51
DX: M71.171 Other infective bursitis, right ankle and foot (principal); Z91.040 Latex allergy status; Z88.8 Allergy status to other drugs, medicaments and biological substances; Z91.018 Allergy to other foods

== ENCOUNTER → 2019-10-08 | Outpatient (CLI) | payer OTHER ==
[~2019-10-08] MED LIST changes: -OMEP40CA2 PO; +OMEP40CA97 PO; -RIZA10TA4 PO; +RIZA10TA58 PO
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
== END ==
LOC: M PAIN 10:00
PROVIDERS: ATTEND Family Medicine
DX: M54.2 Cervicalgia (principal); Z79.899 Other long term (current) drug therapy; Z88.8 Allergy status to other drugs, medicaments and biological substances; Z91.018 Allergy to other foods; Z91.048 Other nonmedicinal substance allergy status

== ENCOUNTER → 2019-12-01 | Outpatient (CLI) | payer OTHER ==
[~2019-12-01] MED LIST changes: +BOTULINUM INJ 100 UNITS (J0585) IM ONE; +ZONI100C17 PO; -ZONI100C2 PO; +ZONI50CA11 PO; -ZONI50CA3 PO
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
== END ==
LOC: M PAIN 11:30
PROVIDERS: ATTEND Anesthesiology
DX: Z86.69 Personal history of other diseases of the nervous system and sense organs (principal); Z86.59 Personal history of other mental and behavioral disorders; M79.7 Fibromyalgia; G43.909 Migraine, unspecified, not intractable, without status migrainosus; G47.00 Insomnia, unspecified; Z88.8 Allergy status to other drugs, medicaments and biological substances; Z91.018 Allergy to other foods; Z91.09 Other allergy status, other than to drugs and biological substances; Z79.899 Other long term (current) drug therapy

== ENCOUNTER → 2019-12-17 | Outpatient (CLI) | payer OTHER ==
[~2019-12-17] MED LIST changes: -BOTULINUM INJ 100 UNITS (J0585) IM ONE
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
== END ==
LOC: M PAIN 10:30
PROVIDERS: ATTEND Family Medicine
DX: M54.2 Cervicalgia (principal)

== ENCOUNTER 2020-02-20 19:57 | Emergency (ER) | payer OTHER ==
[~2020-02-20] VITALS: Ht 167.6 cm; Wt 90.3 kg
[~2020-02-20 19:57] MED LIST changes: -MONT10TA2; +MONT10TA4
[2020-02-20 20:03] VITALS: BP 131/87
[2020-02-20] MEDS ORDERED: AUGM500T34 PO (20:27)
[2020-02-20] MEDS ORDERED: TETANUS/DIPHTHERIA TOX ADSORB ADULT 0.5ML SYR/VIAL (90714) IM ONE (20:30)
--- NOTE | 2020-02-21 08:13 | REP ---
Left foot series: Two views. History: Foreign body evaluation. A BB marker is affixed to the skin at the site of the laceration on the lateral radiograph. Comparison radiographs are from June 14, 2015. Findings: Lateral radiograph demonstrates the opaque BB marker at the plantar aspect of the forefoot. There is adjacent soft tissue irregularity suggesting laceration. No opaque foreign body is visible. No fracture or intra-articular gas is seen. Impression: No opaque foreign body or fracture seen. Electronically Signed by Manohar Cabral MD 02/21/2020 08:04 A
== END 2020-02-20 21:07 | disposition home or self-care (01) ==
LOC: M ED 19:57
DX: S91.332A Puncture wound without foreign body, left foot, initial encounter (principal); W27.2XXA Contact with scissors, initial encounter; Y92.099 Unspecified place in other non-institutional residence as the place of occurrence of the external cause; Y93.89 Activity, other specified; Y99.9 Unspecified external cause status; M79.7 Fibromyalgia; Z79.899 Other long term (current) drug therapy; Z88.8 Allergy status to other drugs, medicaments and biological substances; Z91.018 Allergy to other foods; Z91.040 Latex allergy status

== ENCOUNTER → 2020-03-22 | Outpatient (CLI) | payer OTHER ==
[~2020-03-22] MED LIST changes: +AUGM500T34 PO
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
== END ==
LOC: M TMPAIN 13:00 → M PAIN 13:00
PROVIDERS: ATTEND Family Medicine
DX: M54.2 Cervicalgia (principal); Z88.8 Allergy status to other drugs, medicaments and biological substances; Z91.018 Allergy to other foods; Z91.048 Other nonmedicinal substance allergy status

== ENCOUNTER → 2020-05-23 | Outpatient (CLI) | payer OTHER ==
[~2020-05-23] MED LIST changes: +BACI500O21 TOP; +FAMO1TAB11; +TIZA6CAP
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
== END ==
LOC: M PAIN 13:30 → M TMPAIN 13:30
PROVIDERS: ATTEND Family Medicine
DX: M54.2 Cervicalgia (principal)

== ENCOUNTER 2020-06-05 23:44 | Emergency (ER) | payer OTHER ==
[~2020-06-05] VITALS: Ht 167.6 cm; Wt 94.9 kg
[~2020-06-05 23:44] MED LIST changes: -BACI500O21 TOP; -FAMO1TAB11; -TIZA6CAP
[2020-06-05] MEDS ORDERED: FAMO1TAB11 (23:52)
[2020-06-05] MEDS ORDERED: TIZA6CAP (23:52)
[2020-06-06] MEDS ORDERED: BACI500O21 TOP (01:40)
[2020-06-06 01:50] VITALS: BP 126/78
== END 2020-06-06 01:51 | disposition home or self-care (01) ==
LOC: M ED 23:44
DX: S01.311A Laceration without foreign body of right ear, initial encounter (principal); W54.1XXA Struck by dog, initial encounter; Y92.009 Unspecified place in unspecified non-institutional (private) residence as the place of occurrence of the external cause; Y93.9 Activity, unspecified; Y99.8 Other external cause status; Z79.899 Other long term (current) drug therapy; Z91.02 Food additives allergy status; Z91.040 Latex allergy status; Z88.8 Allergy status to other drugs, medicaments and biological substances

== ENCOUNTER → 2020-07-24 | Outpatient (CLI) | payer OTHER ==
[~2020-07-24] MED LIST changes: +BACI500O21 TOP; +FAMO1TAB11; +TIZA6CAP
== END ==
LOC: M PAIN 09:02
PROVIDERS: ATTEND Family Medicine
DX: M50.10 Cervical disc disorder with radiculopathy, unspecified cervical region (principal)

== ENCOUNTER → 2020-08-03 | Outpatient (CLI) | payer OTHER | LOC: M LABSMTC 11:12 | PROVIDERS: ATTEND Anesthesiology | DX: Z20.828 Contact with and (suspected) exposure to other viral communicable diseases (principal) | CPT/HCPCS: C9803; U0003 ==

== ENCOUNTER → 2020-08-08 | Outpatient (CLI) | payer OTHER ==
[~2020-08-08] MED LIST changes: +ISOVUE-M 300 61% 15ML VIAL As Ordered ONE; +LIDOCAINE 1% SDV 30ML VIAL As Ordered ONE; +diazePAM 5 MG TAB As Ordered ONE; +methylPREDNISolone SUSP 40MG/ML 1ML VIAL (DEPO MEDROL) As Ordered ONE; +oxyCODONE 5MG TAB As Ordered ONE
--- NOTE | 2020-08-24 08:06 | REP ---
FLUOROSCOPIC GUIDANCE The images were reviewed with Dr. Cabral. The portable C-arm was provided in the OR for Dr. Al for fluoroscopic guidance. One intraoperative [id number] fluorospot film was obtained for needle placement verification for cervical epidural injection. The films are on the PACS system and are available for review. 24.3 of fluoroscopy time was utilized for this procedure. MANUEL
== END ==
LOC: M PAIN 08:05
PROVIDERS: ATTEND Anesthesiology
DX: M50.10 Cervical disc disorder with radiculopathy, unspecified cervical region (principal)
CPT/HCPCS: 62321; 76000; G0463; J1030; Q9967

== ENCOUNTER → 2020-08-24 | Outpatient (CLI) | payer OTHER ==
[~2020-08-24] MED LIST changes: -ISOVUE-M 300 61% 15ML VIAL As Ordered ONE; -LIDOCAINE 1% SDV 30ML VIAL As Ordered ONE; -diazePAM 5 MG TAB As Ordered ONE; -methylPREDNISolone SUSP 40MG/ML 1ML VIAL (DEPO MEDROL) As Ordered ONE; -oxyCODONE 5MG TAB As Ordered ONE
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
== END ==
LOC: M PAIN 11:00
PROVIDERS: ATTEND Family Medicine
DX: M50.10 Cervical disc disorder with radiculopathy, unspecified cervical region (principal); Z86.59 Personal history of other mental and behavioral disorders; M79.7 Fibromyalgia; G43.909 Migraine, unspecified, not intractable, without status migrainosus; G47.00 Insomnia, unspecified; Z88.8 Allergy status to other drugs, medicaments and biological substances; Z91.018 Allergy to other foods; Z91.09 Other allergy status, other than to drugs and biological substances; Z79.899 Other long term (current) drug therapy

== ENCOUNTER → 2020-08-31 | Outpatient (CLI) | payer OTHER ==
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
== END ==
LOC: M PAIN 11:00
PROVIDERS: ATTEND Family Medicine
DX: M79.18 Myalgia, other site (principal); M54.5 Low back pain; G43.909 Migraine, unspecified, not intractable, without status migrainosus; G47.00 Insomnia, unspecified; Z86.59 Personal history of other mental and behavioral disorders; Z88.8 Allergy status to other drugs, medicaments and biological substances; Z91.018 Allergy to other foods; Z91.09 Other allergy status, other than to drugs and biological substances; Z79.899 Other long term (current) drug therapy

== ENCOUNTER → 2020-09-06 | Outpatient (CLI) | payer OTHER | LOC: M LABSMTC 09:55 | PROVIDERS: ATTEND Anesthesiology | DX: Z11.59 Encounter for screening for other viral diseases (principal) | CPT/HCPCS: C9803; U0003 ==

== ENCOUNTER → 2020-09-11 | Outpatient (CLI) | payer OTHER ==
[~2020-09-11] MED LIST changes: +BUPIVACAINE HCL 0.25% 10ML VIAL As Ordered ONE; +BUPIVACAINE HCL 0.25% 30ML VIAL As Ordered ONE; +TRIAMCINOLONE ACETONIDE SUSP 40 MG/ML VIAL (J3301) As Ordered ONE; +diazePAM 5 MG TAB As Ordered ONE; +diphenhydrAMINE 25MG CAP As Ordered ONE; +oxyCODONE 5MG TAB As Ordered ONE
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
== END ==
LOC: M PAIN 10:00
PROVIDERS: ATTEND Anesthesiology
DX: M79.18 Myalgia, other site (principal); F32.9 Major depressive disorder, single episode, unspecified; F41.9 Anxiety disorder, unspecified; F40.00 Agoraphobia, unspecified; K21.9 Gastro-esophageal reflux disease without esophagitis; M79.7 Fibromyalgia; G43.909 Migraine, unspecified, not intractable, without status migrainosus; E87.5 Hyperkalemia; G47.00 Insomnia, unspecified; Z79.899 Other long term (current) drug therapy; Z88.8 Allergy status to other drugs, medicaments and biological substances; Z91.048 Other nonmedicinal substance allergy status; Z91.018 Allergy to other foods
CPT/HCPCS: 20552; J3301

== ENCOUNTER → 2020-10-25 | Outpatient (CLI) | payer OTHER ==
[~2020-10-25] MED LIST changes: -BUPIVACAINE HCL 0.25% 10ML VIAL As Ordered ONE; -BUPIVACAINE HCL 0.25% 30ML VIAL As Ordered ONE; -MONT10TA4; +MONT5TAB2; -TRIAMCINOLONE ACETONIDE SUSP 40 MG/ML VIAL (J3301) As Ordered ONE; -diazePAM 5 MG TAB As Ordered ONE; -diphenhydrAMINE 25MG CAP As Ordered ONE; -oxyCODONE 5MG TAB As Ordered ONE
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
== END ==
LOC: M PAIN 13:30
PROVIDERS: ATTEND Family Medicine
DX: G89.29 Other chronic pain (principal); M79.18 Myalgia, other site; F32.9 Major depressive disorder, single episode, unspecified; F41.9 Anxiety disorder, unspecified; K21.9 Gastro-esophageal reflux disease without esophagitis; M79.7 Fibromyalgia; G43.909 Migraine, unspecified, not intractable, without status migrainosus; E87.6 Hypokalemia; Z79.899 Other long term (current) drug therapy; Z88.8 Allergy status to other drugs, medicaments and biological substances; Z91.018 Allergy to other foods; Z91.048 Other nonmedicinal substance allergy status

== ENCOUNTER → 2020-11-10 | Outpatient (CLI) | payer OTHER ==
--- NOTE | 2020-11-10 13:38 | REPVR ---
PROCEDURE INFORMATION: Exam: MR Lumbar Spine Without Contrast. Exam date and time: 11/10/2020 12:07 PM Age: 35 years old Clinical indication: Low back pain TECHNIQUE: Imaging protocol: Multiplanar magnetic resonance images of the lumbar spine without intravenous contrast. COMPARISON: No relevant prior studies available. FINDINGS: Vertebrae: There is an L5 hemangioma. Anatomic alignment. No acute fracture, Spinal cord: The conus medullaris ends normally. Slight disc desiccation at L4-L5 and L5-S1. Minimal L5-S1 disc height loss. L1-L2: No significant disc disease. No significant spinal canal stenosis. No neural foraminal stenosis. L2-L3: No significant disc disease. No significant spinal canal stenosis. No neural foraminal stenosis. L3-L4: No significant disc disease. No significant spinal canal stenosis. No neural foraminal stenosis. L4-L5: No significant disc disease. No significant spinal canal stenosis. No neural foraminal stenosis. L5-S1: 3 mm central disc protrusion approximates but does not definitively contact the left S1 nerve root. The central spinal canal is patent. No significant foraminal stenoses. Soft tissues: Nonspecific edema in the back subcutaneous fat, potentially dependent/positional. IMPRESSION: Slight lower lumbar disc degeneration. A small central disc protrusion at L5-S1. Electronically signed by: Cheryl Paul On 11/10/2020 13:38:32 PM
== END ==
LOC: M RAD 11:30
PROVIDERS: ATTEND Family Medicine
DX: M54.5 Low back pain (principal)

== ENCOUNTER → 2020-11-27 | Outpatient (CLI) | payer OTHER ==
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
== END ==
LOC: M PAIN 13:30
PROVIDERS: ATTEND Family Medicine
DX: M51.17 Intervertebral disc disorders with radiculopathy, lumbosacral region (principal); G89.29 Other chronic pain; M79.7 Fibromyalgia; G43.909 Migraine, unspecified, not intractable, without status migrainosus; G47.00 Insomnia, unspecified; Z86.59 Personal history of other mental and behavioral disorders; Z88.8 Allergy status to other drugs, medicaments and biological substances; Z91.018 Allergy to other foods; Z91.09 Other allergy status, other than to drugs and biological substances; Z79.899 Other long term (current) drug therapy

== ENCOUNTER → 2020-12-14 | Outpatient (CLI) | payer OTHER ==
[~2020-12-14] MED LIST changes: -BUPR150T3 PO; +BUPR150T4 PO; +MONT10TA10; -MONT5TAB2
== END ==
LOC: M LABSMTC 10:57
PROVIDERS: ATTEND Anesthesiology
DX: Z20.822 Contact with and (suspected) exposure to COVID-19 (principal)

== ENCOUNTER → 2020-12-19 | Outpatient (CLI) | payer OTHER ==
[~2020-12-19] MED LIST changes: +ISOVUE-M 300 61% 15ML VIAL As Ordered ONE; +LIDOCAINE 1% SDV 30ML VIAL As Ordered ONE; +diphenhydrAMINE 25MG CAP As Ordered ONE; +methylPREDNISolone SUSP 40MG/ML 1ML VIAL (DEPO MEDROL) As Ordered ONE; +oxyCODONE 5MG TAB As Ordered ONE
--- NOTE | 2020-12-19 16:17 | REP ---
INDICATION: LUMBAR EPIDURAL STEROID INJECTION. COMPARISON: None. TECHNIQUE: Two views. 14.7 seconds of fluoroscopy time is reported. FINDINGS: A sequence of 2 last image hold fluoroscopically obtained spot radiograph(s) of the lumbar spine document(s) needle position(s) and contrast injection associated with injection procedure. IMPRESSION: Procedural imaging. <Electronically signed by Paolo Cabral > 12/19/20 3902
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
== END ==
LOC: M PAIN 13:00
PROVIDERS: ATTEND Anesthesiology
DX: M51.16 Intervertebral disc disorders with radiculopathy, lumbar region (principal); F32.9 Major depressive disorder, single episode, unspecified; F41.9 Anxiety disorder, unspecified; K21.9 Gastro-esophageal reflux disease without esophagitis; M79.7 Fibromyalgia; G43.909 Migraine, unspecified, not intractable, without status migrainosus; E87.6 Hypokalemia; G47.00 Insomnia, unspecified; F40.00 Agoraphobia, unspecified; Z79.899 Other long term (current) drug therapy; Z88.8 Allergy status to other drugs, medicaments and biological substances; Z91.018 Allergy to other foods; Z91.048 Other nonmedicinal substance allergy status
CPT/HCPCS: 62323; J1030; Q9967

== ENCOUNTER → 2021-01-02 | Outpatient (CLI) | payer OTHER ==
[~2021-01-02] MED LIST changes: -ISOVUE-M 300 61% 15ML VIAL As Ordered ONE; -LIDOCAINE 1% SDV 30ML VIAL As Ordered ONE; -diphenhydrAMINE 25MG CAP As Ordered ONE; -methylPREDNISolone SUSP 40MG/ML 1ML VIAL (DEPO MEDROL) As Ordered ONE; -oxyCODONE 5MG TAB As Ordered ONE
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
== END ==
LOC: M PAIN 14:15
PROVIDERS: ATTEND Nurse Practitioner Family
DX: G89.29 Other chronic pain (principal); F32.9 Major depressive disorder, single episode, unspecified; F40.02 Agoraphobia without panic disorder; K21.9 Gastro-esophageal reflux disease without esophagitis; M79.7 Fibromyalgia; G43.909 Migraine, unspecified, not intractable, without status migrainosus; E87.6 Hypokalemia; G47.00 Insomnia, unspecified; Z79.899 Other long term (current) drug therapy; Z91.018 Allergy to other foods; Z91.048 Other nonmedicinal substance allergy status; Z88.8 Allergy status to other drugs, medicaments and biological substances

== ENCOUNTER → 2021-03-02 | Outpatient (CLI) | payer OTHER ==
[~2021-03-02] MED LIST changes: +BUPR150T12 PO; -BUPR150T4 PO; +NAPR-849 PO; -NAPR250T4 PO
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
== END ==
LOC: M PAIN 09:00
PROVIDERS: ATTEND Family Medicine
DX: G89.29 Other chronic pain (principal); M51.17 Intervertebral disc disorders with radiculopathy, lumbosacral region; F32.9 Major depressive disorder, single episode, unspecified; F41.9 Anxiety disorder, unspecified; K21.9 Gastro-esophageal reflux disease without esophagitis; M79.7 Fibromyalgia; G43.909 Migraine, unspecified, not intractable, without status migrainosus; E87.6 Hypokalemia; G47.00 Insomnia, unspecified; Z79.899 Other long term (current) drug therapy; Z91.018 Allergy to other foods; Z91.048 Other nonmedicinal substance allergy status; Z88.8 Allergy status to other drugs, medicaments and biological substances

== ENCOUNTER → 2021-03-16 | Outpatient (CLI) | payer OTHER | LOC: M LABSMTC 11:05 | PROVIDERS: ATTEND Anesthesiology | DX: Z11.52 Encounter for screening for COVID-19 (principal) ==

== ENCOUNTER → 2021-03-21 | Outpatient (CLI) | payer OTHER ==
[~2021-03-21] MED LIST changes: +ISOVUE-M 300 61% 15ML VIAL As Ordered ONE; +LIDOCAINE 1% SDV 30ML VIAL As Ordered ONE; +diazePAM 2 MG TAB As Ordered ONE; +diphenhydrAMINE 25MG CAP As Ordered ONE; +methylPREDNISolone SUSP 40MG/ML 1ML VIAL (DEPO MEDROL) As Ordered ONE; +oxyCODONE 5MG TAB As Ordered ONE
--- NOTE | 2021-03-21 11:56 | REP ---
INDICATION: LUMBAR EPIDURAL STEROID INJECTION. COMPARISON: 12/19/2020. TECHNIQUE: Two C-arm views lower lumbar spine. FINDINGS: A needle is seen at the L5 level. IMPRESSION: 14 seconds of fluoroscopy time was utilized. <Electronically signed by Mark Moreno > 03/21/21 [id number]
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
== END ==
LOC: M PAIN 10:00
PROVIDERS: ATTEND Anesthesiology
DX: M51.17 Intervertebral disc disorders with radiculopathy, lumbosacral region (principal); M79.7 Fibromyalgia; G43.909 Migraine, unspecified, not intractable, without status migrainosus; G47.00 Insomnia, unspecified; Z86.59 Personal history of other mental and behavioral disorders; Z88.8 Allergy status to other drugs, medicaments and biological substances; Z91.018 Allergy to other foods; Z91.09 Other allergy status, other than to drugs and biological substances; Z79.899 Other long term (current) drug therapy
CPT/HCPCS: 62323; J1030; Q9967

== ENCOUNTER → 2021-03-29 | Outpatient (CLI) | payer OTHER ==
[~2021-03-29] MED LIST changes: -ISOVUE-M 300 61% 15ML VIAL As Ordered ONE; -LIDOCAINE 1% SDV 30ML VIAL As Ordered ONE; -diazePAM 2 MG TAB As Ordered ONE; -diphenhydrAMINE 25MG CAP As Ordered ONE; -methylPREDNISolone SUSP 40MG/ML 1ML VIAL (DEPO MEDROL) As Ordered ONE; -oxyCODONE 5MG TAB As Ordered ONE
== END ==
LOC: M LAB 14:01
PROVIDERS: ATTEND Obstetrics & Gynecology Obstetrics
DX: Z09 Encounter for follow-up examination after completed treatment for conditions other than malignant neoplasm (principal); N76.6 Ulceration of vulva

== ENCOUNTER → 2021-04-04 | Outpatient (CLI) | payer OTHER ==
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
== END ==
LOC: M PAIN 10:15
PROVIDERS: ATTEND Family Medicine
DX: M51.17 Intervertebral disc disorders with radiculopathy, lumbosacral region (principal); G89.29 Other chronic pain; M79.7 Fibromyalgia; G43.909 Migraine, unspecified, not intractable, without status migrainosus; G47.00 Insomnia, unspecified; Z86.59 Personal history of other mental and behavioral disorders; Z88.8 Allergy status to other drugs, medicaments and biological substances; Z91.018 Allergy to other foods; Z91.09 Other allergy status, other than to drugs and biological substances; Z79.899 Other long term (current) drug therapy

== ENCOUNTER 2021-04-15 16:25 | Emergency (ER) | payer OTHER ==
[~2021-04-15] VITALS: Ht 167.6 cm; Wt 100.9 kg
[2021-04-15] MEDS ORDERED: ORIL200T (16:39)
[2021-04-15] MEDS ORDERED: DICL50TA2 (16:39)
[2021-04-15 17:42] LABS: HEMATOCRIT 38.3 % (36.0-47.0); HEMOGLOBIN 12.3 g/dl (12.0-15.5); MEAN CORPUSCULAR HEMOGLOBIN 30.1 pg (27.0-33.0); MEAN CORPUSCULAR HGB CONC 32.1 g/dl (32.0-36.5); MEAN CORPUSCULAR VOLUME 93.6 fl (80.0-96.0); PLATELET COUNT, AUTOMATED 252 10^3/uL (150-450); RED BLOOD COUNT 4.09 10^6/uL (4.00-5.40); WHITE BLOOD COUNT 5.7 10^3/uL (4.0-10.0)
[2021-04-15 17:53] LABS: INR 0.87
[2021-04-15 17:54] LABS: PARTIAL THROMBOPLASTIN TIME 29.2 SECONDS (24.2-38.5)
[2021-04-15 18:07] LABS: ALBUMIN 3.4 GM/DL (3.2-5.2); ALT/SGPT 14 U/L (12-78); BILIRUBIN,DIRECT < 0.1 MG/DL (0.0-0.2); BILIRUBIN,TOTAL 0.2 MG/DL (0.2-1.0); LIPASE 92 U/L (73-393); TOTAL PROTEIN 6.6 GM/DL (6.4-8.2)
[2021-04-15 18:09] LABS: ATYPICAL LYMPH 5 % (0-5); BASOPHILS 1 % (0-1); EOSINOPHILS 2 % (0-3); LYMPHOCYTES 34 % (16-44); MONOCYTES 8 % (0-5); NEUTROPHILS 50 % (28-66); PLATELET ESTIMATE NORMAL (NORMAL)
[2021-04-15] MEDS ORDERED: ISOVUE-370 76% 100ML VIAL As Ordered ONE (18:16)
--- NOTE | 2021-04-15 20:07 | REPVR ---
PROCEDURE INFORMATION: Exam: CT Abdomen And Pelvis With Contrast Exam date and time: 04/15/2021 6:22 PM Age: 35 years old Clinical indication: Abdominal pain; Localized; Lower; Additional info: Lower abd pain/gi bleed TECHNIQUE: Imaging protocol: Computed tomography of the abdomen and pelvis with contrast. Radiation optimization: All CT scans at this facility use at least one of these dose optimization techniques: automated exposure control; mA and/or kV adjustment per patient size (includes targeted exams where dose is matched to clinical indication); or iterative reconstruction. Contrast material: ISOVUE 370; Contrast volume: 100 ml; Contrast route: INTRAVENOUS (IV); COMPARISON: CT ABD/PEL W/IV ORAL CONTRAS 01/06/2018 3:54 PM FINDINGS: Lungs: Calcified granuloma at the left lung base otherwise clear appearing lung bases. Heart: The heart is normal in size and there is no pericardial effusion. Liver: Normal liver. Gallbladder and bile ducts: Partially contracted gallbladder. Pancreas: Normal pancreas. Spleen: Normal spleen. Adrenal glands: Normal adrenal glands. Kidneys and ureters: There is enhancement of both kidneys. There are 2 punctate stones lower pole of the right kidney. Stomach and bowel: No evidence of a large bowel abnormality. There are secretions within the stomach and an air-fluid level. Appendix: No evidence of appendicitis. Intraperitoneal space: Unremarkable. No free air. No significant fluid collection. Vasculature: There is opacification of the SMV and the SMA. Lymph nodes: And there is no evidence of lymphadenopathy. Urinary bladder: Normal urinary bladder. Reproductive: Normal appearing uterus. Bones/joints: Unremarkable. No acute fracture. Soft tissues: There is no evidence of soft tissue abnormality. IMPRESSION: 1. No evidence of bowel obstruction. 2. No distinct bleed identified Electronically signed by: Mark Garnett On 04/15/2021 20:06:24 PM
[2021-04-15 20:42] VITALS: BP 118/78
== END 2021-04-15 20:44 | disposition home or self-care (01) ==
LOC: M ED 16:25
DX: K62.5 Hemorrhage of anus and rectum (principal); R10.31 Right lower quadrant pain; R10.32 Left lower quadrant pain; M54.5 Low back pain; R56.9 Unspecified convulsions; M79.7 Fibromyalgia; F41.9 Anxiety disorder, unspecified; Z91.040 Latex allergy status; Z79.899 Other long term (current) drug therapy
CPT/HCPCS: 36415; 74177; 80047; 80076; 83690; 84702; 85025; 85610; 85730; 86850; 86900; 86901; 99284; Q9967

== ENCOUNTER 2021-04-28 21:27 | Emergency (ER) | payer OTHER ==
[~2021-04-28] VITALS: Ht 167.6 cm; Wt 100.0 kg
[~2021-04-28 21:27] MED LIST changes: +DICL50TA2; +ORIL200T
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
[2021-04-29 02:02] VITALS: BP 137/85
== END 2021-04-29 02:14 | disposition home or self-care (01) ==
LOC: M ED 21:27
DX: S80.811A Abrasion, right lower leg, initial encounter (principal); S60.221A Contusion of right hand, initial encounter; V28.0XXA Motorcycle driver injured in noncollision transport accident in nontraffic accident, initial encounter; Y92.410 Unspecified street and highway as the place of occurrence of the external cause; G43.909 Migraine, unspecified, not intractable, without status migrainosus; M79.7 Fibromyalgia; G47.00 Insomnia, unspecified; M54.2 Cervicalgia; K21.9 Gastro-esophageal reflux disease without esophagitis; Z79.899 Other long term (current) drug therapy; Z88.8 Allergy status to other drugs, medicaments and biological substances; Z91.040 Latex allergy status; Z91.018 Allergy to other foods

== ENCOUNTER → 2021-06-08 | Outpatient (CLI) | payer OTHER ==
[~2021-06-08] MED LIST changes: +OMEP40CA4 PO; -OMEP40CA97 PO
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
== END ==
LOC: M PAIN 13:45
PROVIDERS: ATTEND Family Medicine
DX: M50.10 Cervical disc disorder with radiculopathy, unspecified cervical region (principal); G89.29 Other chronic pain; M79.7 Fibromyalgia; G43.909 Migraine, unspecified, not intractable, without status migrainosus; Z86.59 Personal history of other mental and behavioral disorders; Z88.8 Allergy status to other drugs, medicaments and biological substances; Z91.018 Allergy to other foods; Z91.09 Other allergy status, other than to drugs and biological substances; Z79.899 Other long term (current) drug therapy

== ENCOUNTER → 2021-08-09 | Outpatient (CLI) | payer OTHER ==
[~2021-08-09] MED LIST changes: +CYCL5TAB PO; -MONT10TA10; +MONT10TA97; +TIZA10TA PO; -TIZA4TAB4 PO
== END ==
LOC: M PAIN 09:30
PROVIDERS: ATTEND Anesthesiology
DX: M51.16 Intervertebral disc disorders with radiculopathy, lumbar region (principal); F32.9 Major depressive disorder, single episode, unspecified; F41.9 Anxiety disorder, unspecified; K21.9 Gastro-esophageal reflux disease without esophagitis; M79.7 Fibromyalgia; G43.909 Migraine, unspecified, not intractable, without status migrainosus; E87.5 Hyperkalemia; G47.00 Insomnia, unspecified; Z79.1 Long term (current) use of non-steroidal anti-inflammatories (NSAID); Z79.899 Other long term (current) drug therapy; Z91.018 Allergy to other foods; Z88.8 Allergy status to other drugs, medicaments and biological substances; Z91.048 Other nonmedicinal substance allergy status
CPT/HCPCS: 73630; G0463

== ENCOUNTER → 2021-08-23 | Outpatient (CLI) | payer OTHER ==
[~2021-08-23] MED LIST changes: -CYCL5TAB PO; +MONT10TA10; -MONT10TA97; -TIZA10TA PO; +TIZA4TAB4 PO
== END ==
LOC: M LABSMTC 09:13
PROVIDERS: ATTEND Anesthesiology
DX: Z01.818 Encounter for other preprocedural examination (principal); Z11.52 Encounter for screening for COVID-19

== ENCOUNTER → 2021-08-28 | Outpatient (CLI) | payer OTHER ==
[~2021-08-28] MED LIST changes: +ISOVUE-M 300 61% 15ML VIAL As Ordered ONE; +LIDOCAINE 1% SDV 30ML VIAL As Ordered ONE; +diazePAM 2 MG TAB As Ordered ONE; +diphenhydrAMINE 25MG CAP As Ordered ONE; +methylPREDNISolone SUSP 40MG/ML 1ML VIAL (DEPO MEDROL) As Ordered ONE; +oxyCODONE 5MG TAB As Ordered ONE
--- NOTE | 2021-08-28 15:33 | REP ---
INDICATION: LUMBAR EPIDURAL STEROID INJECTION. COMPARISON: None. TECHNIQUE: Two views. 10.3 seconds of fluoroscopy time is reported. FINDINGS: A sequence of 2 last image hold fluoroscopically obtained spot radiograph(s) of the lumbar spine document(s) needle position(s) and contrast injection associated with injection procedure. IMPRESSION: Procedural imaging. <Electronically signed by Paolo Cabral > 08/28/21 [id number]
== END ==
LOC: M PAIN 13:20
PROVIDERS: ATTEND Anesthesiology
DX: M51.16 Intervertebral disc disorders with radiculopathy, lumbar region (principal); F32.9 Major depressive disorder, single episode, unspecified; F41.9 Anxiety disorder, unspecified; K21.9 Gastro-esophageal reflux disease without esophagitis; F40.02 Agoraphobia without panic disorder; M79.7 Fibromyalgia; G43.909 Migraine, unspecified, not intractable, without status migrainosus; E87.6 Hypokalemia; G47.00 Insomnia, unspecified; Z79.1 Long term (current) use of non-steroidal anti-inflammatories (NSAID); Z79.899 Other long term (current) drug therapy; Z91.018 Allergy to other foods; Z88.8 Allergy status to other drugs, medicaments and biological substances; Z91.048 Other nonmedicinal substance allergy status
CPT/HCPCS: 62323; J1030; Q9967

== ENCOUNTER → 2021-11-12 | Outpatient (CLI) | payer OTHER ==
[~2021-11-12] MED LIST changes: -ISOVUE-M 300 61% 15ML VIAL As Ordered ONE; -LIDOCAINE 1% SDV 30ML VIAL As Ordered ONE; -diazePAM 2 MG TAB As Ordered ONE; -diphenhydrAMINE 25MG CAP As Ordered ONE; -methylPREDNISolone SUSP 40MG/ML 1ML VIAL (DEPO MEDROL) As Ordered ONE; -oxyCODONE 5MG TAB As Ordered ONE
== END ==
LOC: M PAIN 10:45
PROVIDERS: ATTEND Nurse Practitioner Family
DX: M54.2 Cervicalgia (principal); G89.29 Other chronic pain; M79.7 Fibromyalgia; G43.909 Migraine, unspecified, not intractable, without status migrainosus; Z86.59 Personal history of other mental and behavioral disorders; Z88.8 Allergy status to other drugs, medicaments and biological substances; Z91.018 Allergy to other foods; Z91.09 Other allergy status, other than to drugs and biological substances; Z79.899 Other long term (current) drug therapy

== ENCOUNTER → 2021-12-27 | Outpatient (CLI) | payer OTHER ==
[~2021-12-27] MED LIST changes: -MONT10TA10; +MONT10TA97; +TIZA10TA PO; -TIZA4TAB4 PO
== END ==
LOC: M PLAIMG 08:51
PROVIDERS: ATTEND Nurse Practitioner Family
DX: M54.2 Cervicalgia (principal)

== ENCOUNTER → 2022-01-25 | Outpatient (CLI) | payer OTHER ==
[~2022-01-25] MED LIST changes: +CYCL5TAB PO
== END ==
LOC: M PAIN 14:15
PROVIDERS: ATTEND Anesthesiology
DX: M47.812 Spondylosis without myelopathy or radiculopathy, cervical region (principal); M79.10 Myalgia, unspecified site; M79.18 Myalgia, other site; F32.A Depression, unspecified; F40.00 Agoraphobia, unspecified; K21.9 Gastro-esophageal reflux disease without esophagitis; M79.7 Fibromyalgia; G43.909 Migraine, unspecified, not intractable, without status migrainosus; E87.6 Hypokalemia; G47.00 Insomnia, unspecified; F41.9 Anxiety disorder, unspecified; Z88.8 Allergy status to other drugs, medicaments and biological substances; Z91.018 Allergy to other foods; Z91.048 Other nonmedicinal substance allergy status

== ENCOUNTER → 2022-05-05 | Outpatient (CLI) | payer OTHER ==
[~2022-05-05] MED LIST changes: -ZONI100C17 PO; +ZONI100C67 PO
== END ==
LOC: M LABSMTC 10:21
PROVIDERS: ATTEND Anesthesiology
DX: Z11.52 Encounter for screening for COVID-19 (principal)

== ENCOUNTER → 2022-05-06 | Outpatient (CLI) | payer OTHER ==
[~2022-05-06] MED LIST changes: +BUPIVACAINE HCL 0.25% 10ML VIAL As Ordered ONE; +BUPIVACAINE HCL 0.25% 30ML VIAL As Ordered ONE; +TRIAMCINOLONE ACETONIDE SUSP 40 MG/ML VIAL (J3301) As Ordered ONE; +diazePAM 5MG TABLET As Ordered ONE; +diphenhydrAMINE 25MG CAP As Ordered ONE; +oxyCODONE 5MG TAB As Ordered ONE
== END ==
LOC: M PAIN 10:20
PROVIDERS: ATTEND Anesthesiology
DX: M79.18 Myalgia, other site (principal); F32.A Depression, unspecified; F41.9 Anxiety disorder, unspecified; F40.00 Agoraphobia, unspecified; K21.9 Gastro-esophageal reflux disease without esophagitis; M79.7 Fibromyalgia; G43.909 Migraine, unspecified, not intractable, without status migrainosus; E87.6 Hypokalemia; Z79.899 Other long term (current) drug therapy; Z88.8 Allergy status to other drugs, medicaments and biological substances; Z91.018 Allergy to other foods; Z91.048 Other nonmedicinal substance allergy status
CPT/HCPCS: 20553; J3301

== ENCOUNTER → 2022-07-03 | Outpatient (CLI) | payer OTHER ==
[~2022-07-03] MED LIST changes: -BUPIVACAINE HCL 0.25% 10ML VIAL As Ordered ONE; -BUPIVACAINE HCL 0.25% 30ML VIAL As Ordered ONE; -TRIAMCINOLONE ACETONIDE SUSP 40 MG/ML VIAL (J3301) As Ordered ONE; -diazePAM 5MG TABLET As Ordered ONE; -diphenhydrAMINE 25MG CAP As Ordered ONE; -oxyCODONE 5MG TAB As Ordered ONE
== END ==
LOC: M PAIN 10:30
PROVIDERS: ATTEND Anesthesiology
DX: M50.10 Cervical disc disorder with radiculopathy, unspecified cervical region (principal); F32.A Depression, unspecified; F41.9 Anxiety disorder, unspecified; F40.00 Agoraphobia, unspecified; K21.9 Gastro-esophageal reflux disease without esophagitis; M79.7 Fibromyalgia; G43.909 Migraine, unspecified, not intractable, without status migrainosus; M25.559 Pain in unspecified hip; E87.5 Hyperkalemia; G47.00 Insomnia, unspecified; R11.10 Vomiting, unspecified; M25.521 Pain in right elbow; N80.9 Endometriosis, unspecified; R49.0 Dysphonia; Z79.1 Long term (current) use of non-steroidal anti-inflammatories (NSAID); Z79.899 Other long term (current) drug therapy; Z88.8 Allergy status to other drugs, medicaments and biological substances; Z91.018 Allergy to other foods; Z91.048 Other nonmedicinal substance allergy status

== ENCOUNTER → 2022-08-09 | Outpatient (CLI) | payer OTHER ==
[~2022-08-09] MED LIST changes: +PROHANCE 279.3MG/ML 15ML VIAL ONE; +PROHANCE 279.3MG/ML 5ML VIAL ONE
== END ==
LOC: M PLAIMG 14:17
PROVIDERS: ATTEND Nurse Practitioner Family
DX: G40.89 Other seizures (principal)

== ENCOUNTER → 2022-12-19 | Outpatient (CLI) | payer OTHER ==
[~2022-12-19] MED LIST changes: -PROHANCE 279.3MG/ML 15ML VIAL ONE; -PROHANCE 279.3MG/ML 5ML VIAL ONE
== END ==
LOC: M PAIN 08:45
PROVIDERS: ATTEND Nurse Practitioner Family
DX: M50.10 Cervical disc disorder with radiculopathy, unspecified cervical region (principal); F32.A Depression, unspecified; F41.9 Anxiety disorder, unspecified; F40.00 Agoraphobia, unspecified; K21.9 Gastro-esophageal reflux disease without esophagitis; M79.7 Fibromyalgia; G43.909 Migraine, unspecified, not intractable, without status migrainosus; M25.559 Pain in unspecified hip; E87.5 Hyperkalemia; G47.00 Insomnia, unspecified; R11.10 Vomiting, unspecified; M25.521 Pain in right elbow; N80.9 Endometriosis, unspecified; R49.0 Dysphonia; Z79.1 Long term (current) use of non-steroidal anti-inflammatories (NSAID); Z79.899 Other long term (current) drug therapy; Z88.8 Allergy status to other drugs, medicaments and biological substances; Z91.018 Allergy to other foods; Z91.048 Other nonmedicinal substance allergy status

== ENCOUNTER 2023-06-28 11:53 | Emergency (ER) | payer OTHER ==
[~2023-06-28] VITALS: Ht 167.6 cm; Wt 95.5 kg
[2023-06-28 11:55] VITALS: BP 112/68; TEMP 98; O2SAT 100
[2023-06-28] MEDS ORDERED: LOPI600T (12:04)
[2023-06-28] MEDS ORDERED: METO1TAB87 (12:04)
[2023-06-28] MEDS ORDERED: LEVE500T5 (12:04)
[2023-06-28] MEDS ORDERED: ACET325C5 PO (13:26)
== END 2023-06-28 13:38 | disposition home or self-care (01) ==
LOC: M ED 11:53
DX: S60.011A Contusion of right thumb without damage to nail, initial encounter (principal); W50.0XXA Accidental hit or strike by another person, initial encounter; Y92.009 Unspecified place in unspecified non-institutional (private) residence as the place of occurrence of the external cause; Y93.83 Activity, rough housing and horseplay; Y99.8 Other external cause status; M79.7 Fibromyalgia; M46.92 Unspecified inflammatory spondylopathy, cervical region; Z88.8 Allergy status to other drugs, medicaments and biological substances; Z91.040 Latex allergy status; Z79.899 Other long term (current) drug therapy

== ENCOUNTER → 2023-09-30 | Outpatient (CLI) | payer OTHER ==
[~2023-09-30] MED LIST changes: +ACET325C5 PO; +LEVE500T5; +LOPI600T; +METO1TAB87
== END ==
LOC: M PAIN 15:30
PROVIDERS: ATTEND Nurse Practitioner Family
DX: M79.12 Myalgia of auxiliary muscles, head and neck (principal); G89.29 Other chronic pain; F32.A Depression, unspecified; F40.00 Agoraphobia, unspecified; F41.9 Anxiety disorder, unspecified; K21.9 Gastro-esophageal reflux disease without esophagitis; M79.7 Fibromyalgia; G43.909 Migraine, unspecified, not intractable, without status migrainosus; E87.6 Hypokalemia; G47.00 Insomnia, unspecified; Z79.899 Other long term (current) drug therapy; Z88.8 Allergy status to other drugs, medicaments and biological substances; Z91.018 Allergy to other foods; Z91.048 Other nonmedicinal substance allergy status

== ENCOUNTER → 2023-11-28 | Outpatient (CLI) | payer OTHER ==
[~2023-11-28] MED LIST changes: +TRIAMCINOLONE ACETONIDE SUSP 40MG/ML 1ML VIAL As Ordered ONE; +diazePAM 5MG TABLET As Ordered ONE; +diphenhydrAMINE 25MG CAP As Ordered ONE; +oxyCODONE 5MG TAB As Ordered ONE
== END ==
LOC: M PAIN 08:15
PROVIDERS: ATTEND Anesthesiology
DX: M79.12 Myalgia of auxiliary muscles, head and neck (principal); M79.18 Myalgia, other site; K21.9 Gastro-esophageal reflux disease without esophagitis; Z79.899 Other long term (current) drug therapy; Z88.8 Allergy status to other drugs, medicaments and biological substances; Z91.018 Allergy to other foods; Z91.048 Other nonmedicinal substance allergy status
CPT/HCPCS: 20553; J0665; J3301

== ENCOUNTER → 2023-12-26 | Outpatient (CLI) | payer OTHER ==
[~2023-12-26] MED LIST changes: -TRIAMCINOLONE ACETONIDE SUSP 40MG/ML 1ML VIAL As Ordered ONE; -diazePAM 5MG TABLET As Ordered ONE; -diphenhydrAMINE 25MG CAP As Ordered ONE; -oxyCODONE 5MG TAB As Ordered ONE
== END ==
LOC: M PAIN 14:00
PROVIDERS: ATTEND Nurse Practitioner Family
DX: M79.12 Myalgia of auxiliary muscles, head and neck (principal); G89.29 Other chronic pain; M79.18 Myalgia, other site; F32.A Depression, unspecified; F41.9 Anxiety disorder, unspecified; K21.9 Gastro-esophageal reflux disease without esophagitis; G43.909 Migraine, unspecified, not intractable, without status migrainosus; F40.00 Agoraphobia, unspecified; E87.6 Hypokalemia; G47.00 Insomnia, unspecified; M25.511 Pain in right shoulder; M25.512 Pain in left shoulder; Z79.899 Other long term (current) drug therapy; Z88.8 Allergy status to other drugs, medicaments and biological substances; Z91.048 Other nonmedicinal substance allergy status; Z91.018 Allergy to other foods

== ENCOUNTER → 2024-05-04 | Outpatient (CLI) | payer OTHER ==
[~2024-05-04] MED LIST changes: +TRIAMCINOLONE ACETONIDE SUSP 40MG/ML 1ML VIAL As Ordered ONE; +diazePAM 5MG TABLET As Ordered ONE; +diphenhydrAMINE 25MG CAP As Ordered ONE; +oxyCODONE 5MG TAB As Ordered ONE
== END ==
LOC: M PAIN 08:30
PROVIDERS: ATTEND Anesthesiology
DX: M79.18 Myalgia, other site (principal); G89.29 Other chronic pain; F32.A Depression, unspecified; F41.9 Anxiety disorder, unspecified; F40.00 Agoraphobia, unspecified; K21.9 Gastro-esophageal reflux disease without esophagitis; G43.909 Migraine, unspecified, not intractable, without status migrainosus; E87.6 Hypokalemia; G47.00 Insomnia, unspecified; Z79.899 Other long term (current) drug therapy; Z88.8 Allergy status to other drugs, medicaments and biological substances; Z91.018 Allergy to other foods; Z91.048 Other nonmedicinal substance allergy status
CPT/HCPCS: 20552; J0665; J3301

== ENCOUNTER → 2024-06-24 | Outpatient (CLI) | payer OTHER ==
[~2024-06-24] MED LIST changes: -TRIAMCINOLONE ACETONIDE SUSP 40MG/ML 1ML VIAL As Ordered ONE; -diazePAM 5MG TABLET As Ordered ONE; -diphenhydrAMINE 25MG CAP As Ordered ONE; -oxyCODONE 5MG TAB As Ordered ONE
== END ==
LOC: M PAIN 17:00
PROVIDERS: ATTEND Nurse Practitioner Family
DX: M79.18 Myalgia, other site (principal); F32.A Depression, unspecified; F40.00 Agoraphobia, unspecified; K21.9 Gastro-esophageal reflux disease without esophagitis; G43.909 Migraine, unspecified, not intractable, without status migrainosus; E87.6 Hypokalemia; G47.00 Insomnia, unspecified; Z79.899 Other long term (current) drug therapy; Z88.8 Allergy status to other drugs, medicaments and biological substances; Z91.048 Other nonmedicinal substance allergy status; Z91.018 Allergy to other foods

== ENCOUNTER → 2024-06-28 | Outpatient (CLI) | payer OTHER | LOC: M SLEEP HO 10:47 | PROVIDERS: ATTEND Nurse Practitioner Adult Health | DX: G47.30 Sleep apnea, unspecified (principal) ==

== ENCOUNTER → 2024-09-02 | Outpatient (CLI) | payer OTHER ==
[~2024-09-02] MED LIST changes: +TRIAMCINOLONE ACETONIDE SUSP 40MG/ML 1ML VIAL As Ordered ONE; +diazePAM 5MG TABLET As Ordered ONE; +diphenhydrAMINE 25MG CAP As Ordered ONE; +oxyCODONE 5MG TAB As Ordered ONE
== END ==
LOC: M PAIN 11:00
PROVIDERS: ATTEND Anesthesiology
DX: M79.18 Myalgia, other site (principal); G89.29 Other chronic pain; F32.A Depression, unspecified; F41.9 Anxiety disorder, unspecified; K21.9 Gastro-esophageal reflux disease without esophagitis; G43.909 Migraine, unspecified, not intractable, without status migrainosus; E78.5 Hyperlipidemia, unspecified; Z79.899 Other long term (current) drug therapy; Z88.8 Allergy status to other drugs, medicaments and biological substances; Z91.018 Allergy to other foods; Z91.048 Other nonmedicinal substance allergy status
CPT/HCPCS: 20552; J0665; J3301

== ENCOUNTER → 2024-11-09 | Outpatient (CLI) | payer OTHER ==
[~2024-11-09] MED LIST changes: -CYCL5TAB PO; +CYCL5TAB4 PO; -TRIAMCINOLONE ACETONIDE SUSP 40MG/ML 1ML VIAL As Ordered ONE; -diazePAM 5MG TABLET As Ordered ONE; -diphenhydrAMINE 25MG CAP As Ordered ONE; -oxyCODONE 5MG TAB As Ordered ONE
== END ==
LOC: M PAIN 17:30
PROVIDERS: ATTEND Nurse Practitioner Family
DX: M46.1 Sacroiliitis, not elsewhere classified (principal); M79.10 Myalgia, unspecified site; G89.29 Other chronic pain; Z79.899 Other long term (current) drug therapy; Z88.8 Allergy status to other drugs, medicaments and biological substances; Z91.018 Allergy to other foods; Z91.048 Other nonmedicinal substance allergy status

== ENCOUNTER → 2024-11-12 | Outpatient (CLI) | payer OTHER | LOC: M RAD 12:50 | PROVIDERS: ATTEND Nurse Practitioner Family | DX: M46.1 Sacroiliitis, not elsewhere classified (principal) ==

== ENCOUNTER 2024-11-29 12:55 | Outpatient (RCR) | payer OTHER ==
[~2024-11-29 12:55] MED LIST changes: -CLEM2.68; +CLEM2.687
== END 2024-12-24 ==
LOC: M PT 12:55
PROVIDERS: ATTEND Obstetrics & Gynecology
DX: R10.2 Pelvic and perineal pain (principal)

== ENCOUNTER → 2025-01-03 | Outpatient (CLI) | payer OTHER | LOC: M RAD 09:28 | PROVIDERS: ATTEND Nurse Practitioner Family | DX: M46.1 Sacroiliitis, not elsewhere classified (principal) ==

== ENCOUNTER → 2025-01-07 | Outpatient (CLI) | payer OTHER | LOC: M PAIN 16:00 | PROVIDERS: ATTEND Nurse Practitioner Family | DX: M46.1 Sacroiliitis, not elsewhere classified (principal); M79.18 Myalgia, other site; G89.29 Other chronic pain; K21.9 Gastro-esophageal reflux disease without esophagitis; G43.909 Migraine, unspecified, not intractable, without status migrainosus; Z79.899 Other long term (current) drug therapy; Z88.8 Allergy status to other drugs, medicaments and biological substances; Z91.048 Other nonmedicinal substance allergy status; Z91.018 Allergy to other foods ==

== ENCOUNTER 2025-02-16 12:45 | Outpatient (RCR) | payer OTHER | END 2025-02-21 | LOC: M PT 12:45 | PROVIDERS: ATTEND Otolaryngology | DX: M26.609 Unspecified temporomandibular joint disorder, unspecified side (principal); R51.9 Headache, unspecified ==

== ENCOUNTER 2025-06-10 03:05 | Emergency (ER) | payer OTHER ==
[~2025-06-10] VITALS: Ht 167.6 cm; Wt 87.6 kg
[2025-06-10 03:19] VITALS: BP 119/75; TEMP 97.9; O2SAT 99
== END 2025-06-10 06:17 | disposition left against medical advice (07) ==
LOC: M ED 03:05
DX: Z53.21 Procedure and treatment not carried out due to patient leaving prior to being seen by health care provider (principal)

== ENCOUNTER → 2025-07-22 | Outpatient (CLI) | payer OTHER ==
[~2025-07-22] MED LIST changes: -IBUP-1022 PO; +IBUP600T42 PO
== END ==
LOC: M PLAIMG 13:17
PROVIDERS: ATTEND Pain Medicine Pain Medicine
DX: M54.59 Other low back pain (principal)